=== PATIENT | female | born 1960 | race Caucasian/White ===

== ENCOUNTER 2017-09-17 12:13 | Emergency (ER) | payer MEDICAID ==
[~2017-09-17] VITALS: Ht 165.1 cm; Wt 67.6 kg
[2017-09-17 12:17] VITALS: BP 189/92
[2017-09-17] MEDS ORDERED: DEXAMETHASONE 10 MG/ML VIAL IM ONE (13:10)
[2017-09-17] MEDS ORDERED: MORPHINE SULFATE 2 MG/ML SYR IM ONE (13:10)
[2017-09-17 13:49] VITALS: BP 162/71
== END 2017-09-17 13:50 | disposition home or self-care (01) ==
LOC: MED 12:13
DX: M25.542 Pain in joints of left hand (principal); M25.541 Pain in joints of right hand; G89.29 Other chronic pain; K21.9 Gastro-esophageal reflux disease without esophagitis; Z85.42 Personal history of malignant neoplasm of other parts of uterus; Z88.0 Allergy status to penicillin
CPT/HCPCS: 96372; 99284; J1100; J2270

== ENCOUNTER 2017-09-20 11:59 | Emergency (ER) | payer MEDICAID ==
[~2017-09-20] VITALS: Ht 167.6 cm; Wt 66.7 kg
--- NOTE | 2017-09-20 12:13 | NUR ---
PT AMBULATED TO ER BED 11
[2017-09-20 12:18] VITALS: BP 123/64
--- NOTE | 2017-09-20 12:20 | NUR ---
PATIENT PRESENTS TO ED WITH COMPLAINTS OF RIGHT SHOULDER PAIN. PATIENT REPORTS SHE HAS ARTHRITIS AND PAIN IS INCREASING. DENIES N/V/D; SKIN IS PINK/WARM/DRY; AAOX4 WITH EVEN AND STEADY GAIT; LUNGS CLEAR BL; HR EVEN AND REGULAR; PT DENIES ANY FEVER, CP, SOB, OR COUGH AT THIS TIME; PATIENT STATES PAIN OF 10/10 AT THIS TIME; VSS; PATIENT POSITIONED FOR COMFORT; HOB ELEVATED; BEDRAILS UP X1; BED DOWN. ER MD MADE AWARE OF PT STATUS.
[2017-09-20] MEDS ORDERED: MORPHINE SULFATE 2 MG/ML SYR IM ONE (12:45)
[2017-09-20] MEDS ORDERED: DEXAMETHASONE 10 MG/ML VIAL IM ONE (12:45)
[2017-09-20 13:15] VITALS: BP 123/64
--- NOTE | 2017-09-20 13:15 | NUR ---
Patient discharged with v/s stable. Written and verbal after care instructions given and explained. Patient verbalized understanding. Ambulatory with steady gait. All questions addressed prior to discharge. Advised to follow up with PMD.
== END 2017-09-20 13:15 | disposition home or self-care (01) ==
LOC: MED 11:59
DX: M19.011 Primary osteoarthritis, right shoulder (principal); I12.0 Hypertensive chronic kidney disease with stage 5 chronic kidney disease or end stage renal disease; N18.6 End stage renal disease; Z99.2 Dependence on renal dialysis; Z85.54 Personal history of malignant neoplasm of ureter; Z88.0 Allergy status to penicillin
CPT/HCPCS: 73030; 99284; J1100; J2270; Q0092

== ENCOUNTER 2017-09-24 08:00 | Emergency (ER) | payer MEDICAID ==
[~2017-09-24] VITALS: Ht 167.6 cm; Wt 67.1 kg
--- NOTE | 2017-09-24 08:23 | NUR ---
PT AMBULATES WITH WALKER TO BED 11
--- NOTE | 2017-09-24 08:25 | NUR ---
PT MOVED BY WHEELCHAIR TO BED 3
--- NOTE | 2017-09-24 08:26 | NUR ---
57Y/F BIB C/O EVA ARM AND LEG PAIN X3 WKS. PT STATES SHE GETS DIALYSIS TUES,THURS,SAT. PT DENIES N/V/D; SKIN IS PINK/WARM/DRY; AAOX4 WITH EVEN AND STEADY GAIT; PATIENT STATES PAIN OF 9/10 AT THIS TIME; VSS; PATIENT POSITIONED FOR COMFORT; HOB ELEVATED; BEDRAILS UP X1; BED DOWN. ER MD MADE AWARE OF PT STATUS.
[2017-09-24 08:35] VITALS: BP 121/64
[2017-09-24] MEDS ORDERED: HYDROcodone/APAP 10/325 MG 1 TAB TAB PO STA (09:44)
--- NOTE | 2017-09-24 10:05 | NUR ---
LAB AT BEDSIDE
--- NOTE | 2017-09-24 10:13 | NUR ---
XRAY AT BEDSIDE
[2017-09-24 10:20] LABS: BASOPHILS # (AUTO) 0.1 K/uL (0.00-0.22); BASOPHILS % (AUTO) 1.2 % (0.0-2.0); EOSINOPHILS # (AUTO) 0.2 K/uL (0-0.4); EOSINOPHILS % (AUTO) 4.4 % (0.0-4.0); HEMATOCRIT 30.8 % (36-48); HEMOGLOBIN 9.9 g/dL (12.0-16.0); LYMPHOCYTES # (AUTO) 0.9 K/uL (2.5-16.5); LYMPHOCYTES % (AUTO) 20.8 % (20.5-51.1); MEAN CORPUSCULAR HEMOGLOBIN 29 pg (27-31); MEAN CORPUSCULAR HGB CONC 32 g/dL (33-37); MEAN CORPUSCULAR VOLUME 89.4 fL (80-94); MONOCYTES # (AUTO) 0.6 K/uL (0.8-1.0); MONOCYTES % (AUTO) 13.3 % (1.7-9.3); NEUTROPHILS # (AUTO) 2.6 K/uL (1.8-7.7); NEUTROPHILS % (AUTO) 60.3 % (42.2-75.2); PLATELET COUNT (AUTO) 139 K/uL (140-450); RED BLOOD CELL COUNT(AUTO) 3.44 MIL/uL (4.20-5.40); RED CELL DISTRIBUTION WIDTH 17.2 % (11.6-13.7); WHITE BLOOD COUNT (AUTO) 4.4 K/uL (4.8-10.8)
[2017-09-24 10:39] LABS: ANION GAP 9.8 (8-16); CARBON DIOXIDE 31.4 mmol/L (21-32); POTASSIUM 4.2 mmol/L (3.5-5.1)
[2017-09-24 10:40] LABS: PROTHROMBIN TIME 10.9 secs (10.8-13.4)
[2017-09-24 10:41] LABS: CREATININE 5.4 mg/dL (0.6-1.3)
[2017-09-24 10:42] LABS: ALBUMIN 2.4 g/dL (3.4-5.0); TOTAL BILIRUBIN 0.5 mg/dL (0.0-1.0)
[2017-09-24 13:16] VITALS: BP 119/62
== END 2017-09-24 13:16 | disposition home or self-care (01) ==
LOC: MED 08:00
DX: M06.9 Rheumatoid arthritis, unspecified (principal); G89.29 Other chronic pain; I12.0 Hypertensive chronic kidney disease with stage 5 chronic kidney disease or end stage renal disease; N18.6 End stage renal disease; Z99.2 Dependence on renal dialysis; Z85.42 Personal history of malignant neoplasm of other parts of uterus; Z88.0 Allergy status to penicillin
CPT/HCPCS: 36415; 71045; 80053; 85025; 85610; 85730; 99285; Q0092

== ENCOUNTER 2017-09-30 04:05 | Emergency (ER) | payer MEDICAID ==
[~2017-09-30] VITALS: Ht 167.6 cm; Wt 67.1 kg
[2017-09-30 04:09] VITALS: BP 140/72
--- NOTE | 2017-09-30 04:16 | NUR ---
Patient transferred to bed 7 via wheelchair by tech. RN evaluating patient at bedside.
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
--- NOTE | 2017-09-30 04:26 | NUR ---
Dr. Smith evaluating patient at bedside.
[2017-09-30] MEDS ORDERED: MORPHINE SULFATE 4 MG/ML SYR IM ONE (04:30)
[2017-09-30 05:40] VITALS: BP 140/72
--- NOTE | 2017-09-30 05:40 | NUR ---
Patient discharged with v/s stable. Written and verbal after care instructions given and explained. Patient verbalized understanding. Wheel Chair Assisted with to car. All questions addressed prior to discharge. Advised to follow up with PMD. family at bedside upon dc.
== END 2017-09-30 05:40 | disposition home or self-care (01) ==
LOC: MED 04:05
DX: M19.012 Primary osteoarthritis, left shoulder (principal); M19.011 Primary osteoarthritis, right shoulder; I12.0 Hypertensive chronic kidney disease with stage 5 chronic kidney disease or end stage renal disease; N18.6 End stage renal disease; Z99.2 Dependence on renal dialysis; Z85.42 Personal history of malignant neoplasm of other parts of uterus; Z88.0 Allergy status to penicillin
CPT/HCPCS: 96372; 99283; J2270

== ENCOUNTER 2017-10-14 23:38 | Emergency (ER) | payer MEDICAID ==
[~2017-10-14] VITALS: Ht 167.6 cm; Wt 64.0 kg
[2017-10-14 23:46] VITALS: BP 130/81
--- NOTE | 2017-10-14 23:49 | NUR ---
57/F CAME IN W C/O EVA SHOULDER PAIN AND LEFT ARM PAIN AND EDEMA X 1 DAY. DENIES TRAUMA.LIMITED ROM TO EVA SHOUDLERS, +PMSC TO BUE. PMH: ARTHRITIS, UTERINE CA, DIALYSIS
--- NOTE | 2017-10-14 23:49 | NUR ---
TO BED # 11 VIA W/C, REPORT GIVEN TO MARTI PINEDO
[2017-10-15] MEDS ORDERED: HYDROcodone/APAP 10/325 MG 1 TAB TAB PO STA (00:41)
[2017-10-15] MEDS ORDERED: DEXAMETHASONE 10 MG/ML VIAL IM ONE (00:45)
--- NOTE | 2017-10-15 02:55 | NUR ---
Patient discharged with v/s stable. Written and verbal after care instructions given and explained. Patient alert, oriented and verbalized understanding of instructions. Wheel Chair Assisted with to car. All questions addressed prior to discharge. ID band removed. Patient advised to follow up with PMD. Rx of NORCO given. Patient educated on indication of medication including possible reaction and side effects. Opportunity to ask questions provided and answered.
[2017-10-15 03:02] VITALS: BP 132/76
== END 2017-10-15 02:55 | disposition home or self-care (01) ==
LOC: MED 23:38
DX: M19.042 Primary osteoarthritis, left hand (principal); M19.041 Primary osteoarthritis, right hand; I12.0 Hypertensive chronic kidney disease with stage 5 chronic kidney disease or end stage renal disease; Z99.2 Dependence on renal dialysis; Z85.42 Personal history of malignant neoplasm of other parts of uterus; Z88.0 Allergy status to penicillin
CPT/HCPCS: 96372; 99283; J1100

== ENCOUNTER 2017-10-17 21:38 | Emergency (ER) | payer MEDICAID ==
[~2017-10-17] VITALS: Ht 167.6 cm; Wt 64.9 kg
[2017-10-17 21:45] VITALS: BP 123/75
--- NOTE | 2017-10-17 22:31 | NUR ---
PT TAKEN BY WHEELCHAIR TO ER BED 08
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
[2017-10-18] MEDS ORDERED: HYDROcodone/APAP 5/325 MG 1 TAB TAB PO ONE (00:15)
[2017-10-18 00:44] VITALS: BP 173/88
--- NOTE | 2017-10-18 00:44 | NUR ---
Patient discharged with v/s stable. Written and verbal after care instructions given and explained. Patient alert, oriented and verbalized understanding of instructions. Wheelchair-assisted. All questions addressed prior to discharge. ID band removed. Patient advised to follow up with PMD. Rx of TYLENOL given. Patient educated on indication of medication including possible reaction and side effects. Opportunity to ask questions provided and answered.
== END 2017-10-18 00:44 | disposition home or self-care (01) ==
LOC: MED 21:38
DX: G89.29 Other chronic pain (principal); M79.1 Myalgia; R11.2 Nausea with vomiting, unspecified; I10 Essential (primary) hypertension; Z88.0 Allergy status to penicillin; Z85.42 Personal history of malignant neoplasm of other parts of uterus; Z90.710 Acquired absence of both cervix and uterus
CPT/HCPCS: 99283

== ENCOUNTER 2017-10-22 08:34 | Emergency (ER) | payer MEDICAID ==
[~2017-10-22] VITALS: Ht 170.2 cm; Wt 64.9 kg
[2017-10-22 08:43] VITALS: BP 112/63
--- NOTE | 2017-10-22 08:44 | NUR ---
PT AMBULATES TO BED 9
--- NOTE | 2017-10-22 08:47 | NUR ---
PT PRESENTS TO ED WITH COMPLAINTS OF JOINT PAIN. PATIENT STATES THIS IS A CHRONIC PROBLEM BUT WORSENING IN THE LAST COUPLE OF DAYS. 12/27 ARTHRITIS PAIN, GENERALIZED. PATIENT ASSITED TO BED VIA WHEELCHAIR. PATIENT PREFERS TO STAY IN WHEELCHAIR THAN TO TRANSFER TO BED DUE TO PAIN. DENIES N/V/D; SKIN IS PINK/WARM/DRY; AAOX4; LUNGS CLEAR BL; HR EVEN AND REGULAR; PT DENIES ANY FEVER, CP, SOB, OR COUGH AT THIS TIME; VSS; ER MD MADE AWARE OF PT STATUS.
--- NOTE | 2017-10-22 08:48 | NUR ---
DR MOREL EVALUATING AT BEDSIDE
[2017-10-22] MEDS ORDERED: MORPHINE SULFATE 4 MG/ML SYR IM ONE (08:55)
[2017-10-22] MEDS ORDERED: DEXAMETHASONE 10 MG/ML VIAL IM ONE (08:55)
[2017-10-22 11:19] VITALS: BP 110/60
== END 2017-10-22 11:18 | disposition home or self-care (01) ==
LOC: MED 08:34
DX: M06.842 Other specified rheumatoid arthritis, left hand (principal); M06.841 Other specified rheumatoid arthritis, right hand; M06.872 Other specified rheumatoid arthritis, left ankle and foot; M06.871 Other specified rheumatoid arthritis, right ankle and foot; Z99.2 Dependence on renal dialysis; Z90.49 Acquired absence of other specified parts of digestive tract; Z88.0 Allergy status to penicillin; Z85.42 Personal history of malignant neoplasm of other parts of uterus
CPT/HCPCS: 96372; 99284; J1100; J2270

== ENCOUNTER 2017-10-27 10:30 | Emergency (ER) | payer MEDICAID ==
[~2017-10-27] VITALS: Ht 170.2 cm; Wt 64.9 kg
[2017-10-27 10:35] VITALS: BP 99/66
--- NOTE | 2017-10-27 10:41 | NUR ---
TAKEN VIA WALKER TO BED 12
--- NOTE | 2017-10-27 10:46 | NUR ---
57YO F BIB FOR L ARM PAIN R LEG PAIN. PT STATES CHRONIC PAIN DUE TO ARTHRITIS. AAOX4, LS CLEAR THROUGHOUT. ABD FIRM ROUND. PT STATES CONSTIPATION X1WK. BILAT HAND SWELLING AND FEET SWELLING WITH DISCOLORATION. FISTULA ON L UPPER ARM, BRUT/THRILL PRESENT. CHARANJIT CATH ON LEFT UPPER CHEST. WILL CONTINUE TO MONITOR. ER MADE AWARE.
--- NOTE | 2017-10-27 10:50 | NUR ---
Patient being evaluated by physician at bedside.
[2017-10-27] MEDS ORDERED: LACTULOSE 20 GM/30 ML UDC PO ONE (11:05)
[2017-10-27] MEDS ORDERED: MINERAL OIL 135 ML ENEM RC ONE (11:05)
[2017-10-27] MEDS ORDERED: DEXAMETHASONE 10 MG/ML VIAL IM ONE (11:05)
[2017-10-27] MEDS ORDERED: MORPHINE SULFATE 2 MG/ML SYR IM ONE (11:05)
[2017-10-27] MEDS ORDERED: ONDANSETRON 4 MG ODT PO ONE (11:05)
--- NOTE | 2017-10-27 11:11 | NUR ---
XRAY AT BEDSIDE
--- NOTE | 2017-10-27 11:50 | NUR ---
Aletha johnson in [facility] - 10/27/17 at 1307 by MEDS Patient being evaluated by physician at bedside.
[2017-10-27 12:40] VITALS: BP 100/64
--- NOTE | 2017-10-27 12:40 | NUR ---
Patient discharged with v/s stable. Written and verbal after care instructions given and explained. Patient alert, oriented and verbalized understanding of instructions. Ambulatory with steady gait. All questions addressed prior to discharge. ID band removed. Patient advised to follow up with PMD. Rx of COLACE, LACTULOSE given. Patient educated on indication of medication including possible reaction and side effects. Opportunity to ask questions provided and answered.
== END 2017-10-27 12:40 | disposition home or self-care (01) ==
LOC: MED 10:30
DX: M35.3 Polymyalgia rheumatica (principal); K59.09 Other constipation; I12.0 Hypertensive chronic kidney disease with stage 5 chronic kidney disease or end stage renal disease; N18.6 End stage renal disease; Z88.0 Allergy status to penicillin; Z99.2 Dependence on renal dialysis; Z85.42 Personal history of malignant neoplasm of other parts of uterus
CPT/HCPCS: 74018; 96372; 99284; J1100; J2270; S0119

== ENCOUNTER 2017-11-02 23:59 | Emergency (ER) | payer MEDICAID ==
[~2017-11-02] VITALS: Ht 170.2 cm; Wt 64.9 kg
[2017-11-03 00:08] VITALS: BP 147/81
--- NOTE | 2017-11-03 00:16 | NUR ---
PT TAKEN TO BED 7
--- NOTE | 2017-11-03 00:20 | NUR ---
Dr. Smith evaluating patient at bedside.
[2017-11-03] MEDS ORDERED: MORPHINE SULFATE 4 MG/ML SYR IM ONE (00:25)
--- NOTE | 2017-11-03 00:30 | NUR ---
Patient bib family with complaints of worsening upper extremity pain today. Patient denies any recent trauma or injury. Denies any fall. Pt c/o bilateral upper arm pain and right leg pain. AOX4, clear speech. NAD noted. Pt resting comfortably in [facility].
[2017-11-03 01:51] VITALS: BP 147/81
--- NOTE | 2017-11-03 01:51 | NUR ---
Patient discharged with v/s stable. Written and verbal after care instructions given and explained. Patient alert, oriented and verbalized understanding of instructions. Patient wheel chair assisted to car accompanied by daughter. Patient isntructed not to drive home. All questions addressed prior to discharge. ID band removed. Patient advised to follow up with PMD. Rx of Ambien given. Patient educated on indication of medication including possible reaction and side effects. Opportunity to ask questions provided and answered.
== END 2017-11-03 01:51 | disposition home or self-care (01) ==
LOC: MED 23:59
DX: M19.90 Unspecified osteoarthritis, unspecified site (principal); I12.0 Hypertensive chronic kidney disease with stage 5 chronic kidney disease or end stage renal disease; N18.6 End stage renal disease; Z88.0 Allergy status to penicillin; Z85.42 Personal history of malignant neoplasm of other parts of uterus; Z99.2 Dependence on renal dialysis
CPT/HCPCS: 96372; 99283; J2270

== ENCOUNTER 2017-11-05 13:41 | Emergency (ER) | payer MEDICAID ==
[~2017-11-05] VITALS: Ht 170.2 cm; Wt 64.9 kg
[2017-11-05 14:00] VITALS: BP 114/64
--- NOTE | 2017-11-05 14:06 | NUR ---
PT TAKEN BY WHEELCHAIR TO BED 2
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
[2017-11-05] MEDS ORDERED: DEXAMETHASONE 10 MG/ML VIAL IM ONE (15:25)
[2017-11-05] MEDS ORDERED: MORPHINE SULFATE 2 MG/ML SYR IM ONE (15:25)
--- NOTE | 2017-11-05 15:47 | NUR ---
PATIENT MEDICATED FOR BODY PAIN.
[2017-11-05 16:40] VITALS: BP 118/65
--- NOTE | 2017-11-05 16:40 | NUR ---
Patient discharged with v/s stable. Written and verbal after care instructions given and explained. Patient alert, oriented and verbalized understanding of instructions. Wheel Chair Assisted with by . All questions addressed prior to discharge. ID band removed. Patient advised to follow up with PMD. Rx of visteral, tramadol given. Patient educated on indication of medication including possible reaction and side effects. Opportunity to ask questions provided and answered.
== END 2017-11-05 16:40 | disposition home or self-care (01) ==
LOC: MED 13:41
DX: M35.3 Polymyalgia rheumatica (principal); N28.9 Disorder of kidney and ureter, unspecified; Z85.42 Personal history of malignant neoplasm of other parts of uterus; I10 Essential (primary) hypertension; Z88.0 Allergy status to penicillin
CPT/HCPCS: 96372; 99284; J1100; J2270

== ENCOUNTER 2017-12-03 08:24 | Emergency (ER) | payer MEDICAID ==
[~2017-12-03] VITALS: Ht 167.6 cm; Wt 64.4 kg
[2017-12-03 08:53] VITALS: BP 100/52
[2017-12-03 11:03] VITALS: BP 103/54
== END 2017-12-03 11:03 | disposition home or self-care (01) ==
LOC: MED 08:24
DX: K59.00 Constipation, unspecified (principal); Z85.42 Personal history of malignant neoplasm of other parts of uterus; Z88.0 Allergy status to penicillin; Z99.2 Dependence on renal dialysis; I10 Essential (primary) hypertension; I12.0 Hypertensive chronic kidney disease with stage 5 chronic kidney disease or end stage renal disease; N18.6 End stage renal disease
CPT/HCPCS: 99283

== ENCOUNTER 2017-12-17 08:28 | Emergency (ER) | payer MEDICAID ==
[~2017-12-17] VITALS: Ht 167.6 cm; Wt 64.0 kg
[2017-12-17 08:35] VITALS: BP 110/78
[2017-12-17] MEDS ORDERED: MORPHINE SULFATE 2 MG/ML SYR IM ONE (08:50)
[2017-12-17] MEDS ORDERED: methylPREDNISolone SS 125 MG in WATER STERILE 2 ML IM ONE (08:50)
[2017-12-17 09:24] VITALS: BP 113/77
== END 2017-12-17 09:24 | disposition home or self-care (01) ==
LOC: MED 08:28
DX: M35.3 Polymyalgia rheumatica (principal); Z85.42 Personal history of malignant neoplasm of other parts of uterus; Z88.0 Allergy status to penicillin
CPT/HCPCS: 96372; 99284; J2270; J2930

== ENCOUNTER 2018-01-13 13:54 | Emergency (ER) | payer MEDICAID ==
[~2018-01-13] VITALS: Ht 167.6 cm; Wt 62.9 kg
[2018-01-13 14:00] VITALS: BP 109/58
--- NOTE | 2018-01-13 14:12 | NUR ---
PATIENT PRESENTS TO ED WITH THE CHIEF C/O WHOLE BODY PAIN . PT STATES PT WAS IN DIALYSIS AND PAIN STARTED 27 MINS BEFORE DIALYSIS FINISH. SHE USUALLY HAVE DIALYSIS FOR 3HRS 45MINS. PT HAS NAUSEA AT THIS TIME. DENIES V/D; SKIN IS PINK/WARM/DRY; AAOX4 WITH EVEN AND STEADY GAIT; LUNGS CLEAR BL; HR EVEN AND REGULAR; PT DENIES ANY FEVER,SOB, OR COUGH AT THIS TIME; PATIENT STATES PAIN AT UPPER LEFT ABD OF 10/10 AT THIS TIME; VSS; PATIENT POSITIONED FOR COMFORT; HOB ELEVATED; BEDRAILS UP X2; BED DOWN. ER MD MADE AWARE OF PT STATUS.
[2018-01-13] MEDS ORDERED: ACETAMINOPHEN EXTRA STRENGTH 500 MG TAB PO ONE (15:15)
--- NOTE | 2018-01-13 15:19 | NUR ---
DOCTOR AWARE ABOUT PT C/O BODY PAIN.
--- NOTE | 2018-01-13 15:34 | NUR ---
ADMINISTERED MEDICATION ORDER TOLERATING WELL.
[2018-01-13 15:36] LABS: HEMOGLOBIN 12.4 g/dL (12.0-16.0); LYMPHOCYTES # (AUTO) 0.8 K/uL (2.5-16.5); LYMPHOCYTES % (AUTO) 16.6 % (20.5-51.1); NEUTROPHILS # (AUTO) 3.2 K/uL (1.8-7.7); WHITE BLOOD COUNT (AUTO) 4.9 K/uL (4.8-10.8)
[2018-01-13 15:42] LABS: BASOPHILS % (AUTO) 0.7 % (0.0-2.0); EOSINOPHILS # (AUTO) 0.2 K/uL (0-0.4); EOSINOPHILS % (AUTO) 3.3 % (0.0-4.0); HEMATOCRIT 38.5 % (36-48); MEAN CORPUSCULAR HEMOGLOBIN 30 pg (27-31); MEAN CORPUSCULAR HGB CONC 32 g/dL (33-37); MEAN CORPUSCULAR VOLUME 93.3 fL (80-94); MONOCYTES # (AUTO) 0.7 K/uL (0.8-1.0); MONOCYTES % (AUTO) 14.6 % (1.7-9.3); NEUTROPHILS % (AUTO) 64.8 % (42.2-75.2); PLATELET COUNT (AUTO) 69 K/uL (140-450); RED BLOOD CELL COUNT(AUTO) 4.13 MIL/uL (4.20-5.40); RED CELL DISTRIBUTION WIDTH 16.9 % (11.6-13.7)
[2018-01-13] MEDS ORDERED: KETOROLAC 30 MG/ML VIAL IM ONE (15:55)
[2018-01-13] MEDS ORDERED: MORPHINE SULFATE 4 MG/ML SYR IM ONE (15:55)
[2018-01-13 16:03] LABS: ALBUMIN 2.6 g/dL (3.4-5.0); ANION GAP 7.7 (8-16); CARBON DIOXIDE 35.3 mmol/L (21-32); CREATININE 3.7 mg/dL (0.6-1.3); TOTAL BILIRUBIN 0.5 mg/dL (0.0-1.0)
--- NOTE | 2018-01-13 17:27 | NUR ---
Patient discharged with v/s stable. Written and verbal after care instructions given and explained. Patient and Pt.'s verbalized understanding. Wheel Chair Assisted with to car. All questions addressed prior to discharge. Advised to follow up with PMD.
[2018-01-13 17:28] VITALS: BP 132/75
== END 2018-01-13 17:27 | disposition home or self-care (01) ==
LOC: MED 13:54
DX: M79.10 Myalgia, unspecified site (principal); I10 Essential (primary) hypertension; Z85.42 Personal history of malignant neoplasm of other parts of uterus; Z88.0 Allergy status to penicillin
CPT/HCPCS: 36415; 80053; 85025; 96372; 99284; J1885; J2270

== ENCOUNTER 2018-03-13 11:59 | Emergency (ER) | payer MEDICAID ==
[~2018-03-13] VITALS: Ht 167.6 cm; Wt 56.7 kg
[2018-03-13 12:00] VITALS: BP 134/81
--- NOTE | 2018-03-13 12:48 | NUR ---
Aletha johnson in ED - 03/13/18 at 1249 by KUSH PT AMBULATED TO ER BED 11
--- NOTE | 2018-03-13 12:49 | NUR ---
PT IN WHEELCHAIR TO ER BED 11
--- NOTE | 2018-03-13 12:56 | NUR ---
57 YO F BROUGHT IN BY FAMILY W/ C/O HACKING COUGH, NASAL/CHEST CONGESTION, FATIGUE, THROAT PAIN X 2 DAYS. PT ALSO REPORTS C/O JOINT PAIN & ARTHRITIS EXACERBATION. PT W/ RR EVEN AND UNLABORED, LUNGS BL CLEAR. AAOX4, GCS 15. CMS INTACT. DENIES N/V/D/FEVER. ABD SOFT, NON-TENDER. BOWEL SOUNDS ACTIVE X 4. PT W/ AV SHUNT LEFT ARM. SKIN WARM, DRY TO THE TOUCH. COLOR APPROPRIATE FOR ETHNICITY. ER MD NOTIFIED OF PT STATUS. PT NEEDS MET, SAFETY PRECAUTIONS IN PLACE. WILL CONTINUE TO MONITOR.
[2018-03-13] MEDS ORDERED: DEXAMETHASONE 10 MG/ML VIAL IM ONE (13:45)
[2018-03-13] MEDS ORDERED: MORPHINE SULFATE 2 MG/ML SYR IM ONE ×2 (13:45→14:40)
[2018-03-13] MEDS ORDERED: ALBUTEROL SULFATE/IPRATROPIU 3 ML SOL IH ONE (13:55)
[2018-03-13] MEDS ORDERED: MORPHINE SULFATE 4 MG/ML SYR ONE ×2 (14:21→14:57)
--- NOTE | 2018-03-13 14:30 | NUR ---
ADMITTING DX: COLD SYMPTOMS HX: DENIES SOB COPD ASTHMA LOC AWAKE AND ALERT RESPONSIVE TO PAPER NOVELTY MAKER VERBAL COMMANDS EDUCATION PROVIDED TO PATIENT WITH ACKNOWLEDGEMENT ON HHN THERAPY AND RESPIRATORY DRUG HHN THERAPY GIVEN ORDERED ENCOURAGED PATIENT FOR INTERMITTENT DEEP BREATHING DURING THERAPY TOLERATED WELL WITHOUT INCIDENT
[2018-03-13 15:20] VITALS: BP 130/88
--- NOTE | 2018-03-13 15:20 | NUR ---
Patient discharged with v/s stable. Written and verbal after care instructions given and explained. Patient alert, oriented and verbalized understanding of instructions. Ambulatory with steady gait. All questions addressed prior to discharge. ID band removed. Patient advised to follow up with PMD. Rx of TRAMADOL 50MG AND PREDNISONE 20MG given. Patient educated on indication of medication including possible reaction and side effects. Opportunity to ask questions provided and answered.
== END 2018-03-13 15:20 | disposition home or self-care (01) ==
LOC: MED 11:59
DX: M79.7 Fibromyalgia (principal); R05 Cough; I12.0 Hypertensive chronic kidney disease with stage 5 chronic kidney disease or end stage renal disease; N18.6 End stage renal disease; M25.50 Pain in unspecified joint; Z88.0 Allergy status to penicillin
CPT/HCPCS: 71045; 94640; 96372; 99283; J1100; J2270; J7620; Q0092

== ENCOUNTER 2018-04-29 20:30 | Emergency (ER) | payer MEDICAID ==
[~2018-04-29] VITALS: Ht 167.6 cm; Wt 64.9 kg
[2018-04-29 20:41] VITALS: BP 150/89
--- NOTE | 2018-04-29 20:45 | NUR ---
PT TAKEN TO BED 9
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
--- NOTE | 2018-04-29 22:28 | NUR ---
Dr. Da Silva evaluating patient at bedside.
[2018-04-29] MEDS ORDERED: KETOROLAC 60 MG/2 ML VIAL IM ONE (22:35)
--- NOTE | 2018-04-29 23:27 | NUR ---
ANIMAL BITE REPORTING FORM FAXED TO [phone] BY LETTY PINEDO.
[2018-04-29 23:30] VITALS: BP 149/88
== END 2018-04-29 23:16 | disposition home or self-care (01) ==
LOC: MED 20:30
DX: S01.452A Open bite of left cheek and temporomandibular area, initial encounter (principal); I12.0 Hypertensive chronic kidney disease with stage 5 chronic kidney disease or end stage renal disease; N18.6 End stage renal disease; Z85.42 Personal history of malignant neoplasm of other parts of uterus; Z90.49 Acquired absence of other specified parts of digestive tract; Z90.710 Acquired absence of both cervix and uterus; Z88.0 Allergy status to penicillin; W54.0XXA Bitten by dog, initial encounter; Y93.89 Activity, other specified; Y92.89 Other specified places as the place of occurrence of the external cause; Y99.8 Other external cause status
CPT/HCPCS: 90471; 90715; 96372; 99283; J1885

== ENCOUNTER 2018-05-18 13:24 | Emergency (ER) | payer MEDICAID ==
[~2018-05-18] VITALS: Ht 167.6 cm; Wt 65.8 kg
[2018-05-18 13:33] VITALS: BP 143/80
--- NOTE | 2018-05-18 13:42 | NUR ---
PATIENT AMBULATED TO BED 11.
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
[2018-05-18] MEDS ORDERED: KETOROLAC 60 MG/2 ML VIAL IM ONE (14:15)
[2018-05-18] MEDS ORDERED: MORPHINE SULFATE 4 MG/ML SYR IM ONE (14:45)
[2018-05-18 15:44] VITALS: BP 139/79
--- NOTE | 2018-05-18 15:44 | NUR ---
Patient discharged with v/s stable. Written and verbal after care instructions given and explained. Patient alert, oriented and verbalized understanding of instructions. Wheel Chair Assisted by caregiver. All questions addressed prior to discharge. ID band removed. Patient advised to follow up with PMD. Rx of kEFLEX, BACTRI,NORCO given. Patient educated on indication of medication including possible reaction and side effects. Opportunity to ask questions provided and answered.
== END 2018-05-18 15:44 | disposition home or self-care (01) ==
LOC: MED 13:24
DX: L89.300 Pressure ulcer of unspecified buttock, unstageable (principal); I12.0 Hypertensive chronic kidney disease with stage 5 chronic kidney disease or end stage renal disease; N18.6 End stage renal disease; Z88.0 Allergy status to penicillin; Z85.42 Personal history of malignant neoplasm of other parts of uterus; Z90.710 Acquired absence of both cervix and uterus; Z90.49 Acquired absence of other specified parts of digestive tract
CPT/HCPCS: 96372; 99283; J1885; J2270

== ENCOUNTER 2018-06-02 15:15 | Emergency (ER) | payer MEDICAID ==
[~2018-06-02] VITALS: Ht 167.6 cm; Wt 64.9 kg
[2018-06-02 15:36] VITALS: BP 110/76
--- NOTE | 2018-06-02 15:41 | NUR ---
PATIENT BIB W/C TO ER CHAIR 4.
--- NOTE | 2018-06-02 15:50 | NUR ---
PT IS A 58 Y/O FEMALE BIB W/C WHO PRESENTS TO THE ED C/O R ARM. PT STATES THAT SHE FELL ON HER R ARM. PT REPORTS 10/10 ACHING R UPPER ARM PAIN THAT DOES NOT RADIATE, PAIN ON MOVEMENT. NO OBVIOUS TRAUMA/DEFORMITY. PT ALSO REPORTS PRESSURE ULCER INSIDE R BUTTOCK. PT DENIES CP, SOB, N/V/D. PT AWAKE AND ALERT, RR EVEN/UNLABORED. PT REPOSITIONED FOR COMFORT, BED IN LOWEST POSITION. ER MD DR. FORTUNE NOTIFIED. WILL CONTINUE TO MONITOR. BIB WITH RIGHT ARM PAIN S/P FALL ON THE FLOOR, - LOC, - ROM, <3 CAP REFILL,
[2018-06-02] MEDS ORDERED: MORPHINE SULFATE 4 MG/ML SYR IM ONE (16:10)
--- NOTE | 2018-06-02 16:45 | NUR ---
XRAY AT BEDSIDE FOR INTERVENTION.
[2018-06-02 17:39] VITALS: BP 139/79
--- NOTE | 2018-06-02 17:39 | NUR ---
Patient discharged with v/s stable. Written and verbal after care instructions given and explained. Patient verbalized understanding. Wheel Chair Assisted with to car. All questions addressed prior to discharge. Advised to follow up with PMD.
== END 2018-06-02 17:39 | disposition home or self-care (01) ==
LOC: MED 15:15
DX: M25.511 Pain in right shoulder (principal); L89.309 Pressure ulcer of unspecified buttock, unspecified stage; I12.0 Hypertensive chronic kidney disease with stage 5 chronic kidney disease or end stage renal disease; N18.6 End stage renal disease; Z85.42 Personal history of malignant neoplasm of other parts of uterus; Z88.0 Allergy status to penicillin; W07.XXXA Fall from chair, initial encounter; Y93.89 Activity, other specified; Y92.89 Other specified places as the place of occurrence of the external cause; Y99.8 Other external cause status
CPT/HCPCS: 73030; 96372; 99283; J2270; Q0092

== ENCOUNTER 2018-06-04 12:30 | Emergency (ER) | payer MEDICAID ==
[~2018-06-04] VITALS: Ht 167.6 cm; Wt 64.9 kg
--- NOTE | 2018-06-04 14:53 | NUR ---
PT AMBULATED TO ER BED 09
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
--- NOTE | 2018-06-04 15:14 | NUR ---
Patient being evaluated by physician at bedside.
[2018-06-04] MEDS ORDERED: diphenhydrAMINE 50 MG/ML VIAL IM ONE (15:15)
[2018-06-04] MEDS ORDERED: MORPHINE SULFATE 4 MG/ML SYR IM ONE (15:15)
[2018-06-04] MEDS ORDERED: KETOROLAC 30 MG/ML VIAL IM ONE (15:15)
[2018-06-04 16:30] VITALS: BP 144/84
--- NOTE | 2018-06-04 16:30 | NUR ---
Patient discharged with v/s stable. Written and verbal after care instructions given and explained. Patient verbalized understanding. Wheel Chair Assisted with . All questions addressed prior to discharge. Advised to follow up with PMD.
--- NOTE | 2018-06-04 16:50 | NUR ---
Note elizabeth in EDM - 06/04/18 at 1651 by [facility] Patient discharged with v/s stable. Written and verbal after care instructions given and explained. Patient verbalized understanding. Wheel Chair Assisted with . All questions addressed prior to discharge. Advised to follow up with PMD.
== END 2018-06-04 16:30 | disposition home or self-care (01) ==
LOC: MED 12:30
DX: L89.309 Pressure ulcer of unspecified buttock, unspecified stage (principal); M06.9 Rheumatoid arthritis, unspecified; I10 Essential (primary) hypertension; Z88.0 Allergy status to penicillin; Z99.2 Dependence on renal dialysis; Z90.49 Acquired absence of other specified parts of digestive tract; Z90.710 Acquired absence of both cervix and uterus
CPT/HCPCS: 96372; 99283; J1200; J1885; J2270

== ENCOUNTER 2018-06-06 12:15 | Emergency (ER) | payer MEDICAID ==
[~2018-06-06] VITALS: Ht 167.6 cm; Wt 64.0 kg
[2018-06-06 12:20] VITALS: BP 128/75
--- NOTE | 2018-06-06 13:34 | NUR ---
PATIENT ASSISTED TO BED 1 AT THIS TIME.
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
[2018-06-06] MEDS ORDERED: NEOMYCIN/POLYMYXIN/BACITRACIN 0.9 GM/1 PKT TP ONE ×2 (15:16→15:20)
--- NOTE | 2018-06-06 15:19 | NUR ---
Patient being evaluated by physician at bedside.
[2018-06-06] MEDS ORDERED: MORPHINE SULFATE 4 MG/ML SYR IM ONE (15:20)
[2018-06-06] MEDS ORDERED: PROMETHAZINE 25 MG/ML VIAL IM ONE (15:20)
[2018-06-06 16:00] VITALS: BP 125/70
== END 2018-06-06 16:00 | disposition home or self-care (01) ==
LOC: MED 12:15
DX: L02.215 Cutaneous abscess of perineum (principal); I12.0 Hypertensive chronic kidney disease with stage 5 chronic kidney disease or end stage renal disease; N18.6 End stage renal disease; Z85.42 Personal history of malignant neoplasm of other parts of uterus
CPT/HCPCS: 96372; 99283; J2270; J2550

== ENCOUNTER 2019-05-10 20:15 | Inpatient (IN) | payer MEDICAID ==
[~2019-05-10] VITALS: Ht 170.2 cm; Wt 68.0 kg
[2019-05-10 20:15] VITALS: BP 129/59
--- NOTE | 2019-05-10 20:21 | NUR ---
PT ASSISTED TO BED 8 FROM [facility].
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
[2019-05-10] MEDS ORDERED: MORPHINE SULFATE 4 MG/ML SYR IM ONE (20:55)
[2019-05-10] MEDS ORDERED: ONDANSETRON 4 MG ODT PO ONE (20:55)
--- NOTE | 2019-05-10 21:35 | NUR ---
PATIENT REQUESTING TO BE TURNED IN BED, PATIENT UNABLE TO INDEPENDENTLY SELF TURN OR REPOSITION. GENERALIZED WEAKNESS NOTED. PILLOWS PLACED UNDER LEFT SIDE, PATIENT LYING RIGHT LATERAL. SIDERAILS UP x2, BED LOCKED AND IN LOWEST POSITION. PT CONNECTED TO MONITOR. VSS.
--- NOTE | 2019-05-10 21:40 | NUR ---
PT BS @ 60 MD MADE AWARE. PT GIVEN ORANGE JUICE AND FOOD. Addendum: 05/11/19 at 0638 by [email or web address] * PT AAO X4 AND ASYMPTOMATIC. PT ABLE TO TOLERATE FOOD PO WITH NO EPISODES OF N/V. PT GIVEN SANDWICH, JELLO, AND TWO ORANGE JUICES. ERMD MADE AWARE. NO NEW ORDERS AT THIS TIME. SISTER AND MOTHER AT BEDSIDE.
--- NOTE | 2019-05-10 21:41 | NUR ---
XRAY AT BEDSIDE.
--- NOTE | 2019-05-10 21:56 | NUR ---
DR. HARTMAN AT BEDSIDE.
[2019-05-10] MEDS ORDERED: NACL 0.9% 1,000 ML IV ONE (22:07)
--- NOTE | 2019-05-10 22:15 | NUR ---
PT TAKEN TO CT VIA RSHREYAS.
--- NOTE | 2019-05-10 22:48 | NUR ---
LAB AT BEDSIDE.
[2019-05-10 23:09] LABS: BASOPHILS # (AUTO) 0.1 K/uL (0.00-0.22); BASOPHILS % (AUTO) 2.2 % (0.0-2.0); EOSINOPHILS # (AUTO) 0.1 K/uL (0-0.4); EOSINOPHILS % (AUTO) 5.4 % (0.0-4.0); HEMATOCRIT 26.8 % (36-48); HEMOGLOBIN 8.8 g/dL (12.0-16.0); LYMPHOCYTES # (AUTO) 0.3 K/uL (2.5-16.5); LYMPHOCYTES % (AUTO) 12.1 % (20.5-51.1); MEAN CORPUSCULAR HEMOGLOBIN 28 pg (27-31); MEAN CORPUSCULAR HGB CONC 33 g/dL (33-37); MEAN CORPUSCULAR VOLUME 86.2 fL (80-94); MONOCYTES # (AUTO) 0.3 K/uL (0.8-1.0); MONOCYTES % (AUTO) 10.2 % (1.7-9.3); NEUTROPHILS # (AUTO) 1.7 K/uL (1.8-7.7); NEUTROPHILS % (AUTO) 70.1 % (42.2-75.2); PLATELET COUNT (AUTO) 111 K/uL (140-450); RED BLOOD CELL COUNT(AUTO) 3.11 MIL/uL (4.20-5.40); RED CELL DISTRIBUTION WIDTH 19.6 % (11.6-13.7); WHITE BLOOD COUNT (AUTO) 2.5 K/uL (4.8-10.8)
--- NOTE | 2019-05-10 23:24 | NUR ---
XRAY AT BEDSIDE FOR CHEST XRAY.
[2019-05-10 23:32] LABS: PROTHROMBIN TIME 11.3 secs (10.8-13.4)
[2019-05-10 23:34] LABS: ALBUMIN 1.9 g/dL (3.4-5.0); ANION GAP 10.9 (8-16); CARBON DIOXIDE 32.4 mmol/L (21-32); POTASSIUM 4.3 mmol/L (3.5-5.1); TOTAL BILIRUBIN 0.4 mg/dL (0.0-1.0)
[2019-05-10 23:36] LABS: CREATININE 4.7 mg/dL (0.6-1.3)
--- NOTE | 2019-05-11 00:19 | NUR ---
PT RESTING IN BED. PT AAO X4. RESPIRATIONS ARE EVEN AND UNLABORED. PT REPOSITIONED IN BED. MOTHER AT SISTER AT BEDSIDE. PT DENIES PAIN AT THIS TIME.
[2019-05-11] MEDS ORDERED: BISA-188 PO (00:32)
[2019-05-11] MEDS ORDERED: [UNRECOGNIZED DRUG - CODE] PO (00:32)
[2019-05-11] MEDS ORDERED: COL100L GT (00:32)
[2019-05-11] MEDS ORDERED: HYDR-1100 PO (00:32)
[2019-05-11] MEDS ORDERED: ALPR1TAB2 PO (00:32)
[2019-05-11] MEDS ORDERED: AMLO10TA PO (00:32)
[2019-05-11] MEDS ORDERED: TTS3 TD (00:32)
[2019-05-11] MEDS ORDERED: LON10 PO (00:32)
[2019-05-11] MEDS ORDERED: PANT40EC PO (00:32)
[2019-05-11] MEDS ORDERED: HYDR-5092 PO (00:32)
[2019-05-11] MEDS ORDERED: TRA200 PO (00:32)
[2019-05-11] MEDS ORDERED: ONDA4TAB PO (00:32)
[2019-05-11] MEDS ORDERED: TEMA15CA24 PO (00:32)
[2019-05-11] MEDS ORDERED: LEVOFLOXACIN 500 MG/D5W PREMIX 100 ML IV ONE (00:45)
--- NOTE | 2019-05-11 01:06 | NUR ---
DR. HARTMAN AT BEDSIDE.
--- NOTE | 2019-05-11 02:00 | NUR ---
IV ESTABLISHED ON RIGHT UPPER ARM 22G. IV IS PATENT. NO SWELLING OR REDNESS NOTED. PT DENIES PAIN AT IV SITE.
--- NOTE | 2019-05-11 02:25 | NUR ---
LEVAQUIN 500MG @ 100ML/HR IVP STARTED. IV SITE IS PATENT. NO REDNESS, SWELLING OR PAIN NOTED.
--- NOTE | 2019-05-11 02:48 | NUR ---
PT AAO X4. PT DENIES PAIN AT THIS TIME. PT REPOSITIONED IN BED WITH ASSISTANCE FROM RN. PT RESPIRATIONS ARE EVEN AND UNLABORED. PT ON 2L/MIN NC. PT O2SAT @ 97%. PT VSS.
--- NOTE | 2019-05-11 03:06 | NUR ---
PT RESTING IN BED EYES CLOSED. PT RESPONDS TO VERBAL STIMULI. PT AAO X4. PT DENIES PAIN AT THIS TIME. PT REPOSITIONED IN BED WITH ASSISTANCE FROM RN. PT RESPIRATIONS ARE EVEN AND UNLABORED. PT ON 2L/MIN NC. PT O2SAT @ 97%. PT VSS. PT ASSISTED IN CALLING FAMILY MEMBER ON PHONE.
--- NOTE | 2019-05-11 04:30 | NUR ---
PT BS RECHECKED AND @ 56. DR HARTMAN MADE AWARE. GAVE NEW ORDER
[2019-05-11] MEDS ORDERED: DEXTROSE 50% 50 ML SYR IVP ONE ×2 (04:35→04:45)
--- NOTE | 2019-05-11 05:15 | NUR ---
PT AAO X4. PT DENIES PAIN AT THIS TIME. PT REPOSITIONED IN BED WITH ASSISTANCE FROM RN. PT RESPIRATIONS ARE EVEN AND UNLABORED. PT ON 2L/MIN NC. PT O2SAT @ 97%. PT VSS. SKIN IS WARM AND DRY TO TOUCH.
--- NOTE | 2019-05-11 05:15 | NUR ---
PT BS @ 89. DR LOCKWOOD MADE AWARE. NO NEW ORDERS AT THIS TIME.
--- NOTE | 2019-05-11 05:55 | NUR ---
Patient will be admitted to care of . Admited to [facility]. Will go to room 117. Belongings list completed. Report to MARICEL PINEDO.
--- NOTE | 2019-05-11 05:55 | NUR ---
RECEIVED FROM ER PER MALIK AWAKE, ALERT AND ABLE TO VERBALIZE WELL IN [place]. UPPER EXTREMITIES WEAK AND NOTED UNABLE TO MOVE. DX. OF PNEUMONIA. AFEBRILE. TEMPERATURE PER TEMPORAL 98.6. HD PT. WITH LEFT UPPER ARM FISTULA AND LEFT CHEST WALL TESIO CATHETER IN PLACE. IVF SITE TO RIGHT SHOULDER #22. WITH SACRAL SUPERFICIAL WOUND NOTED. ON 02 AT 2LPM/NC AND 02 SAT OF 99%. WILL ENDORSE TO AM RN FOR CONTINUITY OF CARE.
[2019-05-11 06:17] VITALS: BP 123/75
--- NOTE | 2019-05-11 07:07 | NUR ---
PATIENT HAS BEEN SCREENED AND CATEGORIZED MODERATE NUTRITION RISK. PATIENT WILL BE SEEN WITHIN 3-5 DAYS OF ADMISSION. 05/13/19-05/15/19 SANGEETHA ZAMBRANO MS, RDN
--- NOTE | 2019-05-11 07:26 | NUR ---
RECEIVED BEDSIDE SHIFT REPORT FROM SKIP HOIST OPERATOR NURSE FOR CONTINUATION OF CARE. PATIENT HAS A HX OF IV HEROIN USE, PATIENT REPORTS BEING ON METHADONE, GOVERNMENT DOCUMENTS LIBRARIAN TO CALL [facility] TO CLARIFY METHADONE ORDER. PATIENT HAS NOTABLE TRACK STEIN FROM IV DRUG USE ON BOTH ARMS, IV IS PLACED IN THE RIGHT ANTERIOR SHOULDER. PATIENT REQUIRES TOTAL ASSISTANCE, PATIENT REPORTS BEING PARALYZED BUT NO HISTORY OF SCI OR NEUROLOGICAL DISABILITY TO PROVE THIS SELF-DIAGNOSIS. EDUCATED ON THE CALL LIGHT AND VERBALIZED UNDERSTANDING. BED IS IN LOW POSITION, CALL LIGHT ON AND WITHIN REACH. WILL CONTINUE TO MONITOR.
[2019-05-11] MEDS ORDERED: ONDANSETRON 4 MG TAB PO PRN (08:05)
[2019-05-11] MEDS ORDERED: HYDROcodone/APAP 10/325 MG 1 TAB TAB PO PRN (08:05)
[2019-05-11] MEDS: PANTOPRAZOLE 40 MG TABEC PO SCH (09:00)
[2019-05-11] MEDS: amLODIPine 5 MG TAB PO SCH (09:00)
[2019-05-11] MEDS: DOCUSATE 100 MG/10 ML UDC PO SCH (09:00)
[2019-05-11] MEDS: BISACODYL 5 MG TABEC PO SCH (09:00)
[2019-05-11] MEDS: MINOXIDIL 10 MG TAB PO SCH (09:00)
[2019-05-11] MEDS: LABETALOL 200 MG TAB PO SCH (09:00)
[2019-05-11] MEDS ORDERED: ALPRAZolam 0.5 MG TAB PO SCH (09:00)
--- NOTE | 2019-05-11 09:00 | NUR ---
PATIENT PRESENTS IRRITABLE AND IS UNABLE TO MOVE, REQUIRING TOTAL ASSISTANCE INCLUDING FEEDING. SHE IS ABLE TO SWALLOW AND CHEW FOOD COMPETENTLY. PATIENT HAS A HISTORY OF HYPOGLYCEMIA AND REQUIRES FREQUENT EDUCATION TO REPORT SIGNS AND SYMPTOMS OF LOW BLOOD SUGAR. CALL LIGHT ON AND WITHIN REACH. WILL CONTINUE TO MONITOR.
--- NOTE | 2019-05-11 11:00 | NUR ---
SISTER DANYELLE VÁZQUEZ LEFT HER PHONE NUMBER IN CASE OF EMERGENCY: [phone]. PATIENT IS RESTING IN BED, DAUGHTER AT BEDSIDE. MEDICATION RECONCILIATION IN PROCESS. CALLED [facility] TO VERIFY METHADONE DOSE, THEY CONFIRMED DOSE, PATIENT HAS METHADONE SUPPLY AT HOME THAT IS TO BE PROVIDED BY FAMILY. PHARMACY AWARE. BED IS IN LOW POSITION, CALL LIGHT ON AND WITHIN REACH. WILL CONTINUE TO MONITOR.
[2019-05-11] MEDS: BLOOD GLUCOSE MONITORING 1 DEV DEV FS SCH ×3 (11:30→20:30)
[2019-05-11] MEDS ORDERED: TEMAZEPAM 15 MG CAP PO PRN (12:15)
--- NOTE | 2019-05-11 13:30 | NUR ---
HEMODIALYSIS CONSENT SIGNED PER MD'S ORDERS, DIALYSIS IN PREPARATION, PATIENTS VITAL SIGNS ARE STABLE AT THIS TIME. VISITOR AT BEDSIDE. BLOOD SUGAR 65, NO INTERVENTION REQUIRED. WILL CONTINUE TO MONITOR.
[2019-05-11] MEDS ORDERED: LEVOFLOXACIN 500 MG/D5W PREMIX 100 ML IV SCH (14:25)
[2019-05-11] MEDS ORDERED: ONDANSETRON 4 MG/2 ML VIAL IVP PRN (14:25)
[2019-05-11] MEDS ORDERED: LORazepam 2 MG/ML VIAL IVP PRN (14:25)
[2019-05-11] MEDS ORDERED: ACETAMINOPHEN 325 MG TAB PO PRN (14:25)
[2019-05-11] MEDS ORDERED: HYDROcodone/APAP 5/325 MG 1 TAB TAB PO PRN (14:25)
[2019-05-11] MEDS ORDERED: ALBUTEROL 0.083% 2.5 MG/3 ML NEBU INH PRN (14:40)
[2019-05-11 16:00] VITALS: BP 122/61
[2019-05-11] MEDS ORDERED: COMMUNICATION ORDER MC PRN (16:15)
--- NOTE | 2019-05-11 17:00 | NUR ---
2.5 L REMOVED DURING DIALYSIS, TOLERATED HEMODIALYSIS WELL. BLOOD PRESSURE STABLE. PATIENT IS SLEEPING IN BED, BED IN LOW POSITION, CALL LIGHT ON AND WITHIN REACH. MD ORDERED CONSULT WITH RESPIRATORY MD FOR RESPIRATORY FAILURE. EDUCATED ON THE CALL LIGHT, WILL CONTINUE TO MONITOR.
[2019-05-11] MEDS: GLUCOSE PO PRN (17:45)
--- NOTE | 2019-05-11 19:21 | NUR ---
RECEIVED PATIENT IN STABLE CONDITION FROM AM SHIFT NURSE FOR CONTINUITY OF CARE. FAMILY AT BEDSIDE. RESPIRATIONS EVEN, UNLABORED. CONTINUES ON O2 2L NC. IV SITE TO RIGHT SHOULDER 22G PATENT/INTACT. NO C/O PAIN. NO S/SX ACUTE DISTRESS. TOTAL ASSIST FOR ALL ADLS. CALL LIGHT WITHIN REACH. WILL CONTINUE TO MONITOR.
--- NOTE | 2019-05-11 19:22 | NUR ---
BEDSIDE SHIFT REPORT GIVEN TO BALLOON SELLER NURSE FOR CONTINUATION OF CARE.
[2019-05-11] MEDS ORDERED: ALPRAZolam 0.25 MG TAB ONE ×2 (19:47→19:53)
[2019-05-11] MEDS: ALPRAZolam 0.5 MG TAB PO PRN (19:51)
[2019-05-11] MEDS: IPRATROPIUM 0.02% 0.5 MG/2.5 ML NEBU INH SCH (19:53)
--- NOTE | 2019-05-11 20:07 | NUR ---
RECEIVED PT FROM AM SHIFT. PT IN NO APPARENT RESPIRATORY DISTRESS AT THIS TIME; HR 77, RR 20, SPO2 97% ON 1L NC. CLEAR DIMINISHED BREATH SOUNDS. HHN TX GIVEN ORDERED WITH NO ADVERSE REACTION. BVM AT BEDSIDE AND HOB > 30. WILL CONTINUE TO MONITOR PT.
[2019-05-11] MEDS: hydrALAZINE 25 MG TAB PO SCH (20:30)
[2019-05-11] MEDS ORDERED: VANCOMYCIN PER PHARMACY MC PRN (20:40)
[2019-05-11] MEDS ORDERED: VANCOMYCIN HCL 1,250 MG in NACL 0.9% 250 ML IV SCH (21:00)
[2019-05-11] MEDS ORDERED: METHADONE 10 MG TAB PO SCH (21:00)
[2019-05-11] MEDS ORDERED: TEMAZEPAM 15 MG CAP PO SCH (21:00)
[2019-05-11] MEDS: METHADONE PO SCH (21:08)
--- NOTE | 2019-05-11 21:15 | NUR ---
PATIENT CONTINUES IN STABLE CONDITION. NO C/O PAIN. NO S/SX ACUTE DISTRESS. BLOOD GLUCOSE 138 MG/DL. CALL LIGHT WITHIN REACH. WILL CONTINUE TO MONITOR.
--- NOTE | 2019-05-11 22:00 | NUR ---
PATIENT HAS OWN SUPPLY OF METHADONE AND WAS GIVEN HER LAST DOSE AT 2100. TALKED TO DAUGHTER DORYS OVER THE PHONE AND SHE SAID SHE WILL BE AT THE HOSPITAL AT 8AM TOMORROW MORNING TO BRING MORE DOSES FOR HER MOTHER. PATIENT IS CURRENTLY AWAKE AND EATING ICE CHIPS. NO C/O PAIN. NO S/SX ACUTE DISTRESS. CALL LIGHT WITHIN REACH. WILL CONTINUE TO MONITOR.
[2019-05-12] VITALS: BP 143/90
[2019-05-12] MEDS ORDERED: VANCOMYCIN 500 MG VIAL ONE (00:19)
[2019-05-12] MEDS ORDERED: VANCOMYCIN 1,000 MG VIAL ONE (00:19)
--- NOTE | 2019-05-12 01:00 | NUR ---
PATIENT ASLEEP AND IN STABLE CONDITION. NO C/O PAIN. NO S/SX ACUTE DISTRESS NOTED. CALL LIGHT WITHIN REACH. WILL CONTINUE TO MONITOR.
[2019-05-12] MEDS: IPRATROPIUM 0.02% 0.5 MG/2.5 ML NEBU INH SCH ×4 (01:18→19:41)
--- NOTE | 2019-05-12 03:00 | NUR ---
IV SITE NOT FLUSHING WELL. CHANGED IV SITE TO CHEST 20G. NO C/O PAIN. NO S/SX ACUTE DISTRESS. CALL LIGHT WITHIN REACH. WILL CONTINUE TO MONITOR.
--- NOTE | 2019-05-12 03:00 | NUR ---
PATIENT ASLEEP AND IN STABLE CONDITION. NO C/O PAIN. NO S/SX ACUTE DISTRESS NOTED. CALL LIGHT WITHIN REACH. WILL CONTINUE TO MONITOR.
[2019-05-12] MEDS: GLUCOSE PO PRN ×3 (05:20→16:48)
--- NOTE | 2019-05-12 06:15 | NUR ---
PATIENT NOTED TO BE DIAPHORETIC. PATIENT IS STILL ALERT AND ABLE TO RESPOND. CHECKED BLOOD GLUCOSE LEVEL AT 47 MG/DL. GAVE GLUCOSE GUMMIES ORDERED. PATIENT REQUESTED ORANGE JUICE WELL. BLOOD SUGAR RECHECKED AT 66 MG/DL. PATIENT HAS NO C/O OF HYPOGLYCEMIC SYMPTOMS. NO C/O PAIN. NO S/SX ACUTE DISTRESS NOTED. CALL LIGHT WITHIN REACH. WILL CONTINUE TO MONITOR.
--- NOTE | 2019-05-12 07:10 | NUR ---
RECEIVED BEDSIDE REPORT FROM NIGHTSHIFT NURSE. PT RESTING IN BED UPON ARRIVAL. ABLE TO MAKE NEEDS KNOWN. RESPIRATIONS EVEN AND UNLABORED WITH NO SOB OR RESPIRATORY DISTRESS. SKIN WARM AND DRY TO TOUCH. IV SITE IN CHEST 20G IS CLEAN, DRY, AND INTACT. SAFETY MEASURES IN PLACE. WILL CONTINUE TO MONITOR.
[2019-05-12 08:00] VITALS: BP 155/78
[2019-05-12] MEDS: BLOOD GLUCOSE MONITORING 1 DEV DEV FS SCH ×4 (08:06→21:00)
--- NOTE | 2019-05-12 08:10 | NUR ---
PT BLOOD SUGAR WAS 43. PRN GLUCOSE GUMMIES ADMINISTERED PRESCRIBED PER MD ORDER. SAFETY MEASURES IN PLACE. WILL CONTINUE TO MONITOR
[2019-05-12] MEDS ORDERED: METHADONE 10 MG TAB PO SCH (09:00)
--- NOTE | 2019-05-12 09:05 | NUR ---
DAUGHTER GAVE GLASSWARE DEFECT REPAIRER HOME DOSE OF METHADONE. METHADONE WILL BE ADMINISTERED WITH MORNING MEDICATIONS. THE OTHER METHADONE IS SAFELY STORED IN THE NARC LOCK BOX. PER DAUGHTERS REQUEST, SHE WILL BE GIVING US THE 2 DAILY DOSES OF METHADONE SINCE SHE DOES NOT WANT IT STORED IN OUR PHARMACY. PHARMACY IS AWARE. SAFETY MEASURES IN PLACE. WILL CONTINUE TO MONITOR.
[2019-05-12] MEDS: hydrALAZINE 25 MG TAB PO SCH ×2 (09:25→22:09)
--- NOTE | 2019-05-12 09:25 | NUR ---
ADMINISTERED SCHED MED PRESCRIBED PER MD ORDER. PT TOLERATED WELL. MEDICATION EDUCATION PERFORMED. PT VERBALIZED UNDERSTANDING. SAFETY MEASURES IN PLACE. WILL CONTINUE TO MONITOR.
[2019-05-12] MEDS: amLODIPine 5 MG TAB PO SCH (09:28)
[2019-05-12] MEDS: LABETALOL 200 MG TAB PO SCH (09:29)
[2019-05-12] MEDS: BISACODYL 5 MG TABEC PO SCH (09:30)
[2019-05-12] MEDS: DOCUSATE 100 MG/10 ML UDC PO SCH (09:30)
[2019-05-12] MEDS: PANTOPRAZOLE 40 MG TABEC PO SCH (09:31)
[2019-05-12] MEDS: MINOXIDIL 10 MG TAB PO SCH (09:32)
[2019-05-12] MEDS: METHADONE PO SCH ×2 (10:29→21:00)
--- NOTE | 2019-05-12 10:31 | NUR ---
ADMINISTERED SCHED MED PRESCRIBED PER MD ORDER. PT TOLERATED WELL. MEDICATION EDUCATION PERFORMED. PT VERBALIZED UNDERSTANDING. SAFETY MEASURES IN PLACE. WILL CONTINUE TO MONITOR.
[2019-05-12] MEDS: OSELTAMIVIR PHOSPHATE 75 MG CAP PO SCH (11:37)
--- NOTE | 2019-05-12 11:39 | NUR ---
ADMINISTERED SCHED MED PRESCRIBED PER MD ORDER. PT TOLERATED WELL. MEDICATION EDUCATION PERFORMED. PT VERBALIZED UNDERSTANDING. SAFETY MEASURES IN PLACE. WILL CONTINUE TO MONITOR.
--- NOTE | 2019-05-12 12:15 | NUR ---
PT REFUSED TO BE TURN AND CHANGED BY BOTH CAPTAIN WAITER AND NURSE. EDUCATED PT ON IMPORTANCE OF REPOSITIONING YET THE PT STILL REFUSED. PT STATED, "I WANT TO BE LEFT ALONE SO I CAN SLEEP. I DON'T WANT TO BE TURNED AND CHANGED." SAFETY MEASURES IN PLACE. WILL CONTINUE TO MONITOR.
--- NOTE | 2019-05-12 13:45 | NUR ---
HOURLY ROUNDING. PT RESTING IN BED UPON ARRIVAL. ABLE TO MAKE NEEDS KNOWN. RESPIRATIONS EVEN AND UNLABORED WITH NO SOB OR RESPIRATORY DISTRESS. SKIN WARM AND DRY TO TOUCH. SAFETY MEASURES IN PLACE. WILL CONTINUE TO MONITOR.
[2019-05-12 16:00] VITALS: BP 123/68
--- NOTE | 2019-05-12 16:48 | NUR ---
ADMINISTERED SCHED MED PRESCRIBED PER MD ORDER. PT TOLERATED WELL. MEDICATION EDUCATION PERFORMED. PT VERBALIZED UNDERSTANDING. SAFETY MEASURES IN PLACE. WILL CONTINUE TO MONITOR.
--- NOTE | 2019-05-12 19:42 | NUR ---
ENDORSED TO NIGHTSHIFT NURSE. PT IS STABLE.
--- NOTE | 2019-05-12 19:43 | NUR ---
RECEIVED BEDSIDE REPORT FROM AM SHIFT NURSE. PATIENT IS LYING IN BED WITH FAMILY MEMBERS AT BEDSIDE. NO SOB OR DISTRESS NOTED. PATIENT RECEIVING BREATHING TREATMENT AT THIS TIME. IV ACCESS ON CHEST 20 GAUGE. PATENT AND INTACT. PATIENT NOTED WITH AV FISTULA ON LEFT UPPER ARM. BED IN LOW. SAFETY MEASURES IN PLACE. INITIAL ASSESSMENT DONE. CALL LIGHT WITHIN PATIENT REACH. WILL CONTINUE TO MONITOR PATIENT.
--- NOTE | 2019-05-12 19:47 | NUR ---
RECEIVED PT FROM AM SHIFT. PT IN NO APPARENT RESPIRATORY DISTRESS AT THIS TIME; HR 65, RR 18, SPO2 94% ON 1L NC. CLEAR DIMINISHED BREATH SOUNDS ON THE UPPER LOBES. HHN TX GIVEN ORDERED WITH NO ADVERSE REACTION. BVM AT BEDSIDE AND HOB > 30. WILL CONTINUE TO MONITOR PT.
--- NOTE | 2019-05-12 21:09 | NUR ---
LAB CALLED TO NOTIFY THAT PATIENT REFUSED BLOOD DRAW AT THIS TIME.
[2019-05-12] MEDS: ALPRAZolam 0.5 MG TAB PO PRN ×2 (22:24→23:00)
--- NOTE | 2019-05-12 22:26 | NUR ---
PATIENT HAD A BLOOD GLUCOSE RESULT OF 86. WILL CONTINUE TO MONITOR PATIENT.
[2019-05-13 00:05] VITALS: BP 131/72
--- NOTE | 2019-05-13 00:10 | NUR ---
VITALS TAKEN AT THIS TIME. VISIBLE CHEST RISE AND FALL NOTED. WILL CONTINUE TO MONITOR PATIENT.
--- NOTE | 2019-05-13 01:00 | NUR ---
WOUND ASSESSMENT AND PICTURE TAKING DONE OF SACRAL AREA.
[2019-05-13] MEDS: IPRATROPIUM 0.02% 0.5 MG/2.5 ML NEBU INH SCH ×4 (01:40→19:35)
--- NOTE | 2019-05-13 04:25 | NUR ---
ROUNDS DONE AT THIS TIME. VISIBLE CHEST RISE AND FALL NOTED. WILL CONTINUE TO MONITOR PATIENT.
[2019-05-13] MEDS: BLOOD GLUCOSE MONITORING 1 DEV DEV FS SCH ×4 (06:11→21:00)
--- NOTE | 2019-05-13 06:20 | NUR ---
PATIENT HAD A BLOOD GLUCOSE RESULT OF 75 FOR MONITORING.
--- NOTE | 2019-05-13 06:22 | NUR ---
PATIENT IN STABLE CONDITION. NO DISTRESS NOTED. CALL LIGHT WITHIN PATIENT REACH. WILL ENDORSE TO AM SHIFT NURSE FOR CONTINUITY OF CARE.
--- NOTE | 2019-05-13 07:00 | NUR ---
PATIENT REFUSED LABS TO BE DRAWN
--- NOTE | 2019-05-13 07:10 | NUR ---
RECEIVED PATIENT FROM FIRE BATTALION CHIEF NURSE FOR CONTINUITY OF CARE. PATIENT IS ASLEEPING AT THIS TIME. RESPIRATIONS EVEN AND UNLABORED, 2L O2 VIA NC. VISIBLE CHEST RISE NOTED. MED-SURG. ABDOMEN SOFT, ROUND, NONTENDER. BOWEL SOUNDS ACTIVE X4 QUADS. SKIN WARM, DRY. BILAT UPPER ARMS SCABS. IV IN THE LEFT CHEST G20, SALINE LOCK. IV PATENT AND FLUSHING WELL. PATIENT IS BEDBOUND, FALL AND DROPLET PRECAUTIONS PRECAUTIONS. BED IN LOW POSITION. CALL LIGHT IS WITHIN REACH. WILL CONTINUE TO MONITOR.
--- NOTE | 2019-05-13 07:11 | NUR ---
WOUND IN THE SACRAL NOTED. PICTURES ALREADY TAKEN BY SIX SIGMA BLACK BELT ENGINEER NURSE
[2019-05-13 08:00] VITALS: BP 141/76
[2019-05-13] MEDS: PANTOPRAZOLE 40 MG TABEC PO SCH (08:59)
[2019-05-13] MEDS: OSELTAMIVIR PHOSPHATE 75 MG CAP PO SCH (08:59)
[2019-05-13] MEDS: BISACODYL 5 MG TABEC PO SCH (08:59)
[2019-05-13] MEDS: amLODIPine 5 MG TAB PO SCH (08:59)
[2019-05-13] MEDS: LABETALOL 200 MG TAB PO SCH (08:59)
[2019-05-13] MEDS: METHADONE PO SCH ×2 (09:00→21:07)
[2019-05-13] MEDS: hydrALAZINE 25 MG TAB PO SCH ×2 (09:00→21:00)
[2019-05-13] MEDS: DOCUSATE 100 MG/10 ML UDC PO SCH (09:00)
[2019-05-13] MEDS: MINOXIDIL 10 MG TAB PO SCH (09:00)
--- NOTE | 2019-05-13 09:30 | NUR ---
GIVEN MORNING MEDICATIONS PO SCHEDULED. EXPLAINED TO PATIENT MEDS AND SIDE EFFECTS. PATIENT VERBALIZED UNDERSTANDING. WILL CONTINUE TO MONITOR.
--- NOTE | 2019-05-13 10:40 | NUR ---
PATIENT IS SLEEPING BUT OPEN EYES WHEN NAME IS CALLED. ON 2L O2 VIA NC. BED IN LOW POSITION. CALL LIGHT IS WITHIN REACH. WILL CONTINUE TO MONITOR
--- NOTE | 2019-05-13 11:03 | NUR ---
HANDED OUT THE 2 METHADONE BOTTLES. WILL TAKE IT TO PHARMACY
--- NOTE | 2019-05-13 11:09 | NUR ---
PHARMACY SAID TO PUT IT IN THE NARCOTIC BOX. WILL DO
--- NOTE | 2019-05-13 11:30 | NUR ---
BLOOD GLUCOSE CHECK: 53. WILL GIVE GLUCOSE GUMMY
--- NOTE | 2019-05-13 11:32 | NUR ---
GIVEN GLUCOSE GUMMIES FOR LOW BLOOD GLUCOSE. AT BEDSIDE.
--- NOTE | 2019-05-13 11:45 | NUR ---
DC [age] YRS OLD FEMALE PATIENT WAS ADMITTED FROM HOME WITH A DX OF PNEUMONIA. PT HAS A HX OF UTERINE CA, HTN, ESRD, CHRONIC PAIN, AND PNA. HEMODIALYSIS ON TTHS ,CXRAY SHOWED POSSIBLE SMALL PLEURAL EFFUSION, PNEUMONIA. SEEN BY DR RENEE SHEPARD ,STARTED ON TAMIFLU, LEVAQUIN AND VANCOMYCIN CONSULT WITH DR RAYMOND LOPEZ AND NEPHRO CONSULT WITH DR MARTINEZ. DC PLAN TO GO HOME WHEN STABLE CM TO FOLLOW Addendum: 05/14/19 at 1040 by Cathy Hooks CM DC PLANNING: SEEN BY DR RENEE SHEPARD CONTINUE CURRENT THERAPY LEVAQUIN ,VANCO AND TAMIFLU , (-) BLOOD CULTURES HEMODIALYSIS TODAY. DC PLAN TO GO HOME WHEN STABLE CM TO FOLLOW Addendum: 05/17/19 at 1602 by Alejandra Marks CM Received order to arrange services for PT. Met with pt and family at the bedside. Pt aware and agreeable with plan. Pt reported she had HH services in the past with [facility] . Sw called [facility] who stated they're no longer contracted with pt's insurance. Javier called pt's [facility] for contracted companies; spoke to rep Whatley who stated she was unable to find a contracted agency. There asked for orders and PT notes to be faxed to [phone] - ATTN Department. Ref#[id number]. Javier will continue following up as needed. Alejandra Marks, ACSW/CM Ext [phone]
--- NOTE | 2019-05-13 12:24 | NUR ---
RECHECK BLOOD SUGAR 63. ASSISTED PATIENT TO DRINK CRANBERRY JUICE. WILL RECHECK BLOOD SUGAR
--- NOTE | 2019-05-13 13:23 | NUR ---
PATIENT REFUSED FOR BLOOD SUGAR TO BE CHECKED. GIVEN CRANBERRY JUICE TO BRING SUGAR BACK UP. WILL CONTINUE TO MONITOR
[2019-05-13] MEDS: ALPRAZolam 0.5 MG TAB PO PRN ×2 (13:26→23:02)
--- NOTE | 2019-05-13 13:26 | NUR ---
GIVEN XANAX BECAUSE PATIENT IS HAVING ANXIETY AND AGITATED. EXPLAINED TO PATIENT MED AND SIDE EFFECTS. PATIENT VERBALIZED UNDERSTANDING. WILL CONTINUE TO MONITOR
--- NOTE | 2019-05-13 14:01 | NUR ---
PATIENT IS SLEEPING COMFORTABLY AT THIS TIME. NO SIGNS OF DISTRESS NOTED. BED IN LOW POSITION. CALL LIGHT IS WITHIN REACH. WILL CONTINUE TO MONITOR
--- NOTE | 2019-05-13 15:47 | NUR ---
PATIENT IS SLEEPING BUT OPEN EYES WHEN NAME IS CALLED. WILL CONTINUE TO MONITOR
[2019-05-13 16:00] VITALS: BP 114/58
--- NOTE | 2019-05-13 16:14 | NUR ---
OFFERED BLANKET TO THE PATIENT
--- NOTE | 2019-05-13 16:29 | NUR ---
BLOOD SUGAR CHECK: 68. OFFERED CRANBERRY JUICE TO THE PATIENT
--- NOTE | 2019-05-13 16:43 | NUR ---
FAMILY AT BEDSIDE.
--- NOTE | 2019-05-13 16:45 | NUR ---
PATIENT IS TRYING TO FEED PATIENT WITH CAKE TO BRING BLOOD SUGAR UP
[2019-05-13] MEDS: HYDROcodone/APAP 5/325 MG 1 TAB TAB PO PRN (17:12)
--- NOTE | 2019-05-13 17:16 | NUR ---
GIVEN NORCO FOR 6/10 ABD PAIN. EXPLAINED TO PT AND FAMILY MED AND SIDE EFFECT. PATIENT AND FAMILY VERBALIZED UNDERSTANDING. WILL CONTINUE TO MONITOR
--- NOTE | 2019-05-13 17:31 | NUR ---
RECHECK BLOOD SUGAR. 73.
--- NOTE | 2019-05-13 19:08 | NUR ---
ENDORSED PATIENT TO THE MUSIC COPYIST NURSE SUKI FOR CONTINUITY OF CARE. PATIENT IS IN STABLE CONDITION
--- NOTE | 2019-05-13 19:08 | NUR ---
DR. DONATO MADE ROUNDS. MADE AWARE THAT NORCO IS NOT HELPING PATIENT'S PAIN.
--- NOTE | 2019-05-13 19:13 | NUR ---
ENDORSED PATIENT TO THE TRANSFORMER MAKER NURSE YOUSIF FOR CONTINUITY OF CARE. PATIENT IS IN STABLE CONDITION Addendum: 05/13/19 at 1924 by Princess Paulette Lackey RN DISREGARD. WRONG ENTRY
--- NOTE | 2019-05-13 19:14 | NUR ---
RECEIVED BEDSIDE REPORT FROM AM SHIFT NURSE. PATIENT IS LYING IN BED WITH FAMILY MEMBERS AT BEDSIDE. NO SOB OR DISTRESS NOTED. ON 2LPM VIA NASAL CANNULA. IV ACCESS ON LEFT CHEST 20 GAUGE, PATENT INTACT AND INFUSING WELL. NOTED WITH SCARS ON BUE. BED IN LOW, SAFETY MEASURES IN PLACE. INITIAL ASSESSMENT DONE. CALL LIGHT PLACED WITHIN PATIENT REACH. WILL CONTINUE TO MONITOR PATIENT.
[2019-05-13] MEDS: LEVOFLOXACIN 250 MG/D5 PREMIX 50 ML IV SCH (21:07)
--- NOTE | 2019-05-13 21:17 | NUR ---
HYDRALAZINE HELD AT THIS TIME FOR LOW BLOOD PRESSURE OF 109/61 AND PULSE OF 69. WILL CONTINUE TO MONITOR PATIENT.
--- NOTE | 2019-05-13 21:58 | NUR ---
PATIENT HAD A BLOOD GLUCOSE MONITORING RESULT OF 82. Addendum: 05/13/19 at 2159 by Edyta Starr RN PATIENT IN STABLE CONDITION. RESTING WITH EYES CLOSED. WILL CONTINUE TO MONITOR PATIENT.
--- NOTE | 2019-05-13 23:02 | NUR ---
PRN XANAX GIVEN AT THIS TIME PER PATIENT REQUEST FOR ANXIETY. NO DISTRESS NOTED. WILL CONTINUE TO MONITOR PATIENT.
[2019-05-14] VITALS: BP 121/62
--- NOTE | 2019-05-14 00:45 | NUR ---
SPOKE WITH MD. FAMILY STATES THAT PATIENT HAS NOT HAD A BM 6 DAYS PRIOR TO ADMISSION AND PATIENT HAS NOT RECEIVED BM WHILE IN UNIT. NEW ORDERS WERE GIVEN AND CARRIED OUT.
[2019-05-14] MEDS: IPRATROPIUM 0.02% 0.5 MG/2.5 ML NEBU INH SCH ×4 (01:35→19:54)
[2019-05-14] MEDS ORDERED: SODIUM PHOSPHATE 118 ML ENEM RC SCH (01:50)
--- NOTE | 2019-05-14 03:39 | NUR ---
ROUNDS DONE. VISIBLE CHEST RISE AND FALL NOTED. CALL LIGHT PLACED WITHIN PATIENT REACH. WILL CONTINUE TO MONITOR PATIENT.
--- NOTE | 2019-05-14 06:15 | NUR ---
FLEET ENEMA GIVEN AT THIS TIME PER MD ORDER.
--- NOTE | 2019-05-14 06:35 | NUR ---
PATIENT HAD A BLOOD GLUCOSE MONITORING RESULT OF 49. 2 GUMMIES GIVEN AT THIS TIME.
[2019-05-14] MEDS: BLOOD GLUCOSE MONITORING 1 DEV DEV FS SCH ×4 (07:14→20:40)
--- NOTE | 2019-05-14 07:15 | NUR ---
PATIENT IN STABLE CONDITION. CALL LIGHT WITHIN PATIENT REACH. WILL ENDORSE TO AM SHIFT NURSE FOR CONTINUITY OF CARE.
--- NOTE | 2019-05-14 07:16 | NUR ---
RECEIVED PATIENT FROM EXAMINING OFFICER NURSE FOR CONTINUITY OF CARE. PATIENT IS ASLEEPING AT THIS TIME. RESPIRATIONS EVEN AND UNLABORED, 2L O2 VIA NC. VISIBLE CHEST RISE NOTED. MED-SURG. ABDOMEN SOFT, ROUND, NONTENDER. BOWEL SOUNDS ACTIVE X4 QUADS. SKIN WARM, DRY. BILAT UPPER ARMS SCARS. IV IN THE LEFT CHEST G20, SALINE LOCK. IV PATENT AND FLUSHING WELL. PATIENT IS BEDBOUND, FALL AND DROPLET PRECAUTIONS PRECAUTIONS. BED IN LOW POSITION. CALL LIGHT IS WITHIN REACH. WILL CONTINUE TO MONITOR.
[2019-05-14 07:21] LABS: BASOPHILS % (AUTO) 0.6 % (0.0-2.0); EOSINOPHILS # (AUTO) 0.1 K/uL (0-0.4); EOSINOPHILS % (AUTO) 3.2 % (0.0-4.0); HEMATOCRIT 26.1 % (36-48); HEMOGLOBIN 8.4 g/dL (12.0-16.0); LYMPHOCYTES # (AUTO) 0.6 K/uL (2.5-16.5); LYMPHOCYTES % (AUTO) 22.2 % (20.5-51.1); MEAN CORPUSCULAR HEMOGLOBIN 28 pg (27-31); MEAN CORPUSCULAR HGB CONC 32 g/dL (33-37); MEAN CORPUSCULAR VOLUME 87.9 fL (80-94); MONOCYTES # (AUTO) 0.4 K/uL (0.8-1.0); MONOCYTES % (AUTO) 12.4 % (1.7-9.3); NEUTROPHILS # (AUTO) 1.7 K/uL (1.8-7.7); NEUTROPHILS % (AUTO) 61.6 % (42.2-75.2); PLATELET COUNT (AUTO) 116 K/uL (140-450); RED BLOOD CELL COUNT(AUTO) 2.97 MIL/uL (4.20-5.40); RED CELL DISTRIBUTION WIDTH 18.7 % (11.6-13.7); WHITE BLOOD COUNT (AUTO) 2.8 K/uL (4.8-10.8)
[2019-05-14 07:23] LABS: ANION GAP 14.9 (8-16); CARBON DIOXIDE 28.2 mmol/L (21-32); POTASSIUM 5.1 mmol/L (3.5-5.1)
--- NOTE | 2019-05-14 07:30 | NUR ---
RECHECK BLOOD SUGAR: 48. ASSISTING PATIENT TO DRINK CRANBERRY JUICE. WILL RECHECK BLOOD SUGAR
--- NOTE | 2019-05-14 07:49 | NUR ---
Late entry. COnfirmed with RN that Levaquin IV completed at 0330
--- NOTE | 2019-05-14 07:59 | NUR ---
PATIENT IS GETTING DIALYSIS AT THIS TIME
[2019-05-14 08:00] VITALS: BP 112/71
[2019-05-14 08:14] LABS: MAGNESIUM 1.8 mg/dL (1.8-2.4); PHOSPHORUS 6.1 mg/dL (2.5-4.9)
--- NOTE | 2019-05-14 08:14 | NUR ---
RECHECK BLOOD SUGAR: 97
[2019-05-14] MEDS: DOCUSATE 100 MG/10 ML UDC PO SCH (08:15)
--- NOTE | 2019-05-14 08:15 | NUR ---
GIVEN MORNING MEDICATIONS PO. HELD BP MEDICATIONS BECAUSE PATIENT HAS SCHEDULED DIALYSIS. GIVEN XANAX FOR ANXIETY. EXPLAINED TO PATIENT MED AND SIDE EFFECTS. PATIENT VERBALIZED UNDERSTANDING. WILL CONTINUE TO MONITOR
[2019-05-14] MEDS: BISACODYL 5 MG TABEC PO SCH (08:16)
[2019-05-14] MEDS: POLYETHYLENE GLYCOL 17 GM/PKT PO SCH (08:16)
[2019-05-14] MEDS: OSELTAMIVIR PHOSPHATE 75 MG CAP PO SCH (08:16)
[2019-05-14] MEDS: PANTOPRAZOLE 40 MG TABEC PO SCH (08:16)
[2019-05-14 08:32] LABS: CREATININE 5.8 mg/dL (0.6-1.3)
--- NOTE | 2019-05-14 08:32 | NUR ---
CRITICAL LAB: CREATININE 5.8. WILL INFORM DR. DONATO
[2019-05-14] MEDS: METHADONE PO SCH ×2 (09:00→20:45)
[2019-05-14] MEDS: MINOXIDIL 10 MG TAB PO SCH (09:00)
[2019-05-14] MEDS: LABETALOL 200 MG TAB PO SCH (09:00)
[2019-05-14] MEDS: amLODIPine 5 MG TAB PO SCH (09:00)
[2019-05-14] MEDS: hydrALAZINE 25 MG TAB PO SCH ×2 (09:00→20:25)
[2019-05-14] MEDS: ALPRAZolam 0.5 MG TAB PO PRN ×2 (09:12→17:09)
--- NOTE | 2019-05-14 10:30 | NUR ---
DIALYSIS IS DONE. OUTPUT OF 3L. PATIENT IS STABLE
--- NOTE | 2019-05-14 11:30 | NUR ---
BLOOD GLUCOSE CHECK: 54. GIVEN CRANBERRY JUICE AND APPLESAUCE. WILL RECHECK
--- NOTE | 2019-05-14 11:31 | NUR ---
GIVEN GLUCOSE GUMMIES PO FOR BLOOD SUGAR 54. WILL RECHECK BLOOD SUGAR
--- NOTE | 2019-05-14 12:04 | NUR ---
PAGED TANMAY AKHTAR TO GET AN ORDER FOR FLUIDS THAT WILL HOPEFULLY BRING PATIENT'S BLOOD SUGAR UP. WILL WAIT FOR CALL BACK
--- NOTE | 2019-05-14 12:16 | NUR ---
RECHECKED BLOOD SUGAR: 71. GIVEN TWO PACKETS OF SUGAR AND CRANBERRY JUICE. WILL RECHECK
--- NOTE | 2019-05-14 12:20 | NUR ---
WILL GIVE SCHEDULED METHADONE. EXPLAINED MED AND SIDE EFFECTS. PATIENT VERBALIZED UNDERSTANDING. BED IN LOW POSITION. CALL LIGHT IS WITHIN REACH. WILL CONTINUE OT MONITOR
[2019-05-14] MEDS ORDERED: VANCOMYCIN 1,000 MG in DEXTROSE 5% 250 ML IV SCH (13:00)
--- NOTE | 2019-05-14 13:25 | NUR ---
PATIENT REFUSED LUNCH. EDUCATED PATIENT THAT WE NEED TO BRING HER BLOOD SUGAR UP. GIVEN 3 PACKETS OF SUGAR. GIVEN CRANBERRY JUICE. NEPHRO SUPPLEMENT ONLY 2 SIPS. DAUGHTER, DORYS IS AWARE. SHE STATED SHE'LL TRY TO FEED HER MOM.
--- NOTE | 2019-05-14 13:30 | NUR ---
PAGED DR. VALERINAO DONATO AGAIN. WILL WAIT FOR CALL BACK
--- NOTE | 2019-05-14 13:32 | NUR ---
DR. VALERIANO DONATO MADE VERBAL ORDER FOR D51/2NS AT 50 ML/HR. WILL CARRY ORDER.
[2019-05-14] MEDS: DEXT 5% / NACL 0.45% 1,000 ML IV SCH (13:42)
--- NOTE | 2019-05-14 13:43 | NUR ---
HANG D51/2NS AT 50 ML/HR PER MD ORDER.
--- NOTE | 2019-05-14 13:55 | NUR ---
DAUGHTER IS FEEDING PATIENT FOOD.
--- NOTE | 2019-05-14 14:38 | NUR ---
FAMILY AT BEDSIDE. IV FLUIDS RUNNING. WILL CONTINUE TO MONITOR
--- NOTE | 2019-05-14 15:09 | NUR ---
05/14/19 RD INITIAL ASSESSMENT COMPLETED PLEASE REFER TO NUTRITION ASSESSMENT UNDER CARE ACTIVITY FOR ESTIMATED NUTRITIONAL NEEDS. 1. RECOMMEND RENAL DIET TOLERATED 2. FNS WILL PROVIDE NEPRO SHAKE TID 3. ENCOURAGED PATIENT TO INCREASE PO INTAKE, ESPECIALLY CARBOHYDRATES 4. RD TO FOLLOW-UP 2-3 DAYS, HIGH RISK SKYLER JOSEPH RD
[2019-05-14 16:00] VITALS: BP 110/73
--- NOTE | 2019-05-14 16:05 | NUR ---
CHANGED IV TO RIGHT FOREARM G20, FLUSHING WELL. RUNNING VANCO AT THIS TIME. PATIENT TOLERATED WELL.
--- NOTE | 2019-05-14 16:28 | NUR ---
VITAL SIGNS CHECK. BLOOD GLUCOSE 71. WILL CONTINUE TO MONITOR. WILL GIVE CRANBERRY JUICE. D51/2NS FLUID IS RUNNING
[2019-05-14] MEDS: GLUCOSE PO PRN (16:55)
--- NOTE | 2019-05-14 17:09 | NUR ---
GIVEN XANAX PO. PATIENT WAS EXTREMELY AGITATED. SHE WAS TRYING TO PULL IV AND GETTING OUT OF BED. BED IN LOW POSITION. CALL LIGHT IS WITHIN REACH. WILL CONTINUE TO MONITOR
--- NOTE | 2019-05-14 17:11 | NUR ---
BLOOD SUGAR CHECK. 81. WILL CONTINUE TO MONITOR
--- NOTE | 2019-05-14 18:10 | NUR ---
EXPLAINED TO PATIENT THAT IT'S TOO RISKY FOR HER TO BE SITTING IN THE CHAIR. PATIENT IS YELLING. NOTIFIED SISTER, DANYELLE.
--- NOTE | 2019-05-14 18:16 | NUR ---
BLOOD GLUCOSE CHECK: 86. TRENDING.
--- NOTE | 2019-05-14 18:42 | NUR ---
HELPED PATIENT EAT. PATIENT ONLY ATE RICE. GIVEN 2 SUGAR PACKS TO BRING BLOOD SUGAR BACK UP.
--- NOTE | 2019-05-14 18:56 | NUR ---
PATIENT IS CALM, QUIET, AT THIS TIME. BED IN LOW POSITION. CALL LIGHT IS WITHIN REACH. WILL CONTINUE TO MONITOR
--- NOTE | 2019-05-14 19:08 | NUR ---
DAUGHTER DORYS GAVE ME 2 BOTTLES OF METHADONE LIQUID. WILL PUT THEM IN THE NARCOTIC BOX. PM NURSE IS AWARE.
--- NOTE | 2019-05-14 19:15 | NUR ---
ENDORSED PATIENT TO THE WATER TREATMENT PLANT REPAIRER NURSE FOR CONTINUITY OF CARE. ASLEEP RESPIRATIONS EVEN AND UNLABORED. ROOM AIR. VISIBLE CHEST RISE. PATIENT IS IN STABLE CONDITION
--- NOTE | 2019-05-14 19:21 | NUR ---
RECEIVED PT IN STABLE CONDITION FROM AM NURSE. AWAKE,ALERT AND ORIENTED X4. BEDREST. MED SURG PT. WITH NO C/O ANY DISCOMFORT NOR PAIN NOTED. HAS IVF INFUSING WELL ON THE RT FA G#24. OLD AV SHUNT ON LT ARM, LT CHEST HD CATHETER. SACRAL WOUND WITH DRESSING. BED ON LOW POSITION. FREQ ROUNDS NEEDED. SIDE RAILS UP X2. CALL LIGHT PLACED WITHIN EASY REACH. WILL CONTINUE TO MONITOR.
--- NOTE | 2019-05-14 19:46 | NUR ---
FAMILY AT BEDSIDE. IV SITE SWOLLEN, DISCONTINUED. WILL START A NEW IV ACCESS.
--- NOTE | 2019-05-14 20:03 | NUR ---
VISITORS AT BEDSIDE. RECEIVED PATIENT ON 2L NASAL CANNULA, PULSE OX SAT 99%. SCHEDULED BREATHING TREATMENT ADMINISTERED. TOLERATED TX WELL WITHOUT ADVERSE SIDE EFFECTS. PT MADE AWARE OF MEDICATION FREQUENCY AND INSTRUCTED TO CALL NEEDED FOR SOB. NO ACUTE RESPIRATORY DISTRESS NOTED AT THIS TIME. WILL CONTINUE TO MONITOR.
--- NOTE | 2019-05-14 20:40 | NUR ---
BLOOD SUGAR WAS CHECKED RESULT 102 NO INSULIN . REFUSED TO EAT BUT GAVE SOME GLUCERNA. TOLERATED WELL. WILL CONTINUE TO MONITOR.
--- NOTE | 2019-05-14 22:30 | NUR ---
MADE ROUNDS. PT ASLEEP. NO S/S OF ANY DISCOMFORT NOR DISTRESS NOTED.
--- NOTE | 2019-05-15 00:03 | NUR ---
PT REPOSITIONED FOR COMFORT. HAD A SMALL LIQUID CAMELIA. CLEANED AND KEPT DRY.
[2019-05-15 00:15] VITALS: BP 111/64
--- NOTE | 2019-05-15 02:00 | NUR ---
SLEEPING. NO S/S OF ANY DISCOMFORT NOTED.
[2019-05-15] MEDS: IPRATROPIUM 0.02% 0.5 MG/2.5 ML NEBU INH SCH ×4 (02:03→19:32)
--- NOTE | 2019-05-15 02:11 | NUR ---
SCHEDULED BREATHING TREATMENT ADMINISTERED. TOLERATED TX WELL WITHOUT ADVERSE SIDE EFFECTS. NO ACUTE RESPIRATORY DISTRESS NOTED AT THIS TIME. WILL CONTINUE TO MONITOR.
--- NOTE | 2019-05-15 04:00 | NUR ---
REPOSITIONED FOR COMFORT. NO S/S OF DISTRESS NOTED.
[2019-05-15] MEDS: BLOOD GLUCOSE MONITORING 1 DEV DEV FS SCH ×4 (06:17→21:07)
--- NOTE | 2019-05-15 06:30 | NUR ---
BLOOD SUGAR 67. GIVEN SOME APPLE JUICE. TOLERATED WELL.
--- NOTE | 2019-05-15 07:15 | NUR ---
ENDORSED PT IN STABLE CONDITION TO AM NURSE FOR CONTINUITY OF CARE.
--- NOTE | 2019-05-15 07:20 | NUR ---
RECEIVED BEDSIDE REPORT FROM NIGHTSHIFT NURSE. PT RESTING IN BED UPON ARRIVAL. RESPIRATIONS EVEN AND UNLABORED WITH NO SOB OR RESPIRATORY DISTRESS. SKIN WARM AND DRY TO TOUCH. IV SITE IN RIGHT UPPER ARM 24G IS CLEAN, DRY, AND INTACT. SAFETY MEASURES IN PLACE. WILL CONTINUE TO MONITOR
[2019-05-15 08:00] VITALS: BP 128/65
[2019-05-15] MEDS: amLODIPine 5 MG TAB PO SCH ×4 (09:00→09:44)
[2019-05-15] MEDS: MINOXIDIL 10 MG TAB PO SCH (09:00)
[2019-05-15] MEDS: hydrALAZINE 25 MG TAB PO SCH ×3 (09:00→21:06)
[2019-05-15] MEDS: POLYETHYLENE GLYCOL 17 GM/PKT PO SCH (09:19)
[2019-05-15] MEDS: METHADONE PO SCH ×2 (09:19→21:08)
[2019-05-15] MEDS: LABETALOL 200 MG TAB PO SCH ×2 (09:22→09:44)
[2019-05-15] MEDS: PANTOPRAZOLE 40 MG TABEC PO SCH (09:23)
[2019-05-15] MEDS: BISACODYL 5 MG TABEC PO SCH (09:24)
[2019-05-15] MEDS: DOCUSATE 100 MG/10 ML UDC PO SCH (09:24)
[2019-05-15] MEDS: OSELTAMIVIR PHOSPHATE 75 MG CAP PO SCH ×3 (09:24→09:46)
[2019-05-15] MEDS: DEXT 5% / NACL 0.45% 1,000 ML IV SCH (09:37)
--- NOTE | 2019-05-15 09:37 | NUR ---
ADMINISTERED SCHED MED PRESCRIBED PER MD ORDER. PT TOLERATED WELL. MEDICATION EDUCATION PERFORMED. PT VERBALIZED UNDERSTANDING. SAFETY MEASURES IN PLACE. WILL CONTINUE TO MONITOR.
[2019-05-15] MEDS: HYDROcodone/APAP 5/325 MG 1 TAB TAB PO PRN (11:11)
--- NOTE | 2019-05-15 11:11 | NUR ---
PT COMPLAINED OF PAIN. PRN PAIN MEDICATION ADMINISTERED PRESCRIBED PER MD ORDER. MEDICATION EDUCATION PERFORMED. PT VERBALIZED UNDERSTANDING. SAFETY MEASURES IN PLACE. WILL CONTINUE TO MONITOR
[2019-05-15] MEDS: GLUCOSE PO PRN (11:19)
--- NOTE | 2019-05-15 11:30 | NUR ---
PT BLOOD SUGAR WAS 59. PRN GLUCOSE GUMMIES ADMINISTERED PRESCRIBED PER MD ORDER. SAFETY MEASURES IN PLACE. WILL CONTINUE TO MONITOR.
--- NOTE | 2019-05-15 13:15 | NUR ---
FAMILY AT BEDSIDE. PT RESTING IN BED UPON ARRIVAL. RESPIRATIONS EVEN AND UNLABORED WITH NO SOB OR RESPIRATORY DISTRESS. SKIN WARM AND DRY TO TOUCH. SAFETY MEASURES IN PLACE. WILL CONTINUE TO MONITOR
--- NOTE | 2019-05-15 15:45 | NUR ---
HOURLY ROUNDING. PT RESTING IN BED UPON ARRIVAL. RESPIRATIONS EVEN AND UNLABORED WITH NO SOB OR RESPIRATORY DISTRESS. SKIN WARM AND DRY TO TOUCH. SAFETY MEASURES IN PLACE. WILL CONTINUE TO MONITOR
[2019-05-15 16:00] VITALS: BP 129/65
--- NOTE | 2019-05-15 16:30 | NUR ---
PT BLOOD SUGAR IS 73. NO FURTHER ACTION IS NECESSARY. SAFETY MEASURES IN PLACE. WILL CONTINUE TO MONITOR.
--- NOTE | 2019-05-15 17:37 | NUR ---
HOURLY ROUNDING. PT RESTING IN BED UPON ARRIVAL. ABLE TO MAKE NEEDS KNOWN.RESPIRATIONS EVEN AND UNLABORED WITH NO SOB OR RESPIRATORY DISTRESS. SKIN WARM AND DRY TO TOUCH. SAFETY MEASURES IN PLACE. WILL CONTINUE TO MONITOR
--- NOTE | 2019-05-15 19:07 | NUR ---
ENDORSED AT BEDSIDE TO NIGHTSHIFT NURSE. PT RESTING IN BED UPON ARRIVAL. ABLE TO MAKE NEEDS KNOWN.RESPIRATIONS EVEN AND UNLABORED WITH NO SOB OR RESPIRATORY DISTRESS. SKIN WARM AND DRY TO TOUCH. SAFETY MEASURES IN PLACE. PT IS STABLE
--- NOTE | 2019-05-15 19:08 | NUR ---
RECD. RESTING IN BED, AWAKE, A/OX4. RESPIRATION EVEN AND UNLABORED. ON 2 LITERS O2 VIA N/C. 02 SAT - 100%. IV OF D51/2 NS AT 50 ML/HR INFUSING, RIGHT UPPER ARM G24. LEFT SUBCLAVIAN TUNNEL CATH FOR DIALYSIS WITH DRESSING DRY AND INTACT, WITH AV SHUNT AT THE LEFT ARM . PLAN OF CARE FOR THE NIGHT DISCUSSED. VERBALIZED UNDERSTANDING. DENIES PAIN 0/10. DAUGHTER AT THE BEDSIDE.
--- NOTE | 2019-05-15 19:30 | NUR ---
Patient's Plan of Care was discussed and reviewed with STRING TOP SEALER: KEYONNA
--- NOTE | 2019-05-15 19:38 | NUR ---
RECEIVED PT FROM AM SHIFT. PT IN NO APPARENT RESPIRATORY DISTRESS AT THIS TIME; HR 67, RR 18, SPO2 98% ON 2L NC AND A COARSE BREATH SOUNDS ON THE UPPER LOBES; COARSE BREATH SOUNDS ON LOWER LOBES. HHN TX GIVEN ORDERED WITH NO ADVERSE REACTION. PT INFORMED TO CALL RN OR SPEAKING UNIT ASSEMBLER FOR HHN PRN TX WHEN EXPERIENCING SOB. HOB > 30. FAMILY AT BEDSIDE. WILL CONTINUE TO MONITOR PT.
--- NOTE | 2019-05-15 20:00 | NUR ---
DR. DONATO CAME TO CHECKED PATIENT. ORDER US PELVIC NON 0B WITH DOPPLER (US).
--- NOTE | 2019-05-15 20:30 | NUR ---
MADE COMFORTABLE IN BED WITH PILLOWS. EXTRA PILLOW PUT BETWEEN BILATERAL LOWER EXTREMITIES FOR COMFORT.
--- NOTE | 2019-05-15 21:00 | NUR ---
DR. DURAN CAME AND CHECKED PATIENT. WILL FOLLOW UP WITH ANY NEW ORDER.
--- NOTE | 2019-05-15 21:08 | NUR ---
DUE PO MEDICATIONS GIVEN. SNACK FOR THE NIGHT GIVEN.
[2019-05-15] MEDS: oxyCODONE/APAP 5/325 MG 1 TAB TAB PO PRN (21:09)
[2019-05-15] MEDS: LEVOFLOXACIN 250 MG/D5 PREMIX 50 ML IV SCH (22:15)
--- NOTE | 2019-05-15 22:30 | NUR ---
SLEEPING COMFORTABLY IN BED.
[2019-05-16] VITALS: BP 141/75
[2019-05-16] MEDS: IPRATROPIUM 0.02% 0.5 MG/2.5 ML NEBU INH SCH ×4 (00:37→19:18)
[2019-05-16] MEDS: ALPRAZolam 0.5 MG TAB PO PRN (00:49)
--- NOTE | 2019-05-16 00:49 | NUR ---
WITH ANXIETY, UNABLE TO SLEEP. MEDICATED XANAX AND RESTORIL PER MD ORDER.
--- NOTE | 2019-05-16 02:00 | NUR ---
NO ANXIETY, SLEEPING COMFORTABLY IN BED.
--- NOTE | 2019-05-16 03:10 | NUR ---
IV INFILTRATED. PATIENT HARDSTICK. NEW IV LINE INSERTED IN THE CHEST G24 BY CHARGE NURSE YOUSIF.
[2019-05-16] MEDS: DEXT 5% / NACL 0.45% 1,000 ML IV SCH ×2 (04:41→05:35)
--- NOTE | 2019-05-16 05:30 | NUR ---
REFUSED AM LAB BLOOD DRAW.
--- NOTE | 2019-05-16 07:14 | NUR ---
ABLE TO SLEEP WELL. CONDITION REMAIN STABLE. ENDORSED TO AM SHIFT NURSE FOR CONTINUITY OF CARE.
--- NOTE | 2019-05-16 07:15 | NUR ---
[facility] PT IS SLEEPING NO SIGNS OF DISTRESS. PT HAS IV AT THE CHEST 24G WITH D5 1/2 NS RUNNING AT 50ML/HR. PT HAS O2 AT 2 LPM VIA NC. PT HAS LEFT TUNNEL CATH SUBCLAVIAN AND LEFT AV SHUNT. PT IS SCHEDULED FOR DIALYSIS TODAY. PT IS BEDBOUND. CALL LIGHT WITHIN PT'S REACH. BED ON LOW, SIDE RAILS UP. WILL CONTINUE TO MONITOR
[2019-05-16 08:00] VITALS: BP 135/71
[2019-05-16] MEDS: BLOOD GLUCOSE MONITORING 1 DEV DEV FS SCH ×4 (08:23→21:00)
[2019-05-16] MEDS: EPOETIN ALFA 10,000 UNITS/ML VIAL IV SCH (09:00)
[2019-05-16] MEDS: METHADONE PO SCH ×2 (09:00→23:01)
[2019-05-16] MEDS: hydrALAZINE 25 MG TAB PO SCH ×2 (09:00→18:51)
[2019-05-16] MEDS: MINOXIDIL 10 MG TAB PO SCH (09:00)
[2019-05-16] MEDS: LABETALOL 200 MG TAB PO SCH (09:00)
--- NOTE | 2019-05-16 09:05 | NUR ---
SCHEDULED MEDS GIVEN EXCEPT BP MEDS. PT IS FOR DIALYSIS TODAY. WILL CONTINUE TO MONITOR
[2019-05-16] MEDS: DOCUSATE 100 MG/10 ML UDC PO SCH (09:45)
[2019-05-16] MEDS: BISACODYL 5 MG TABEC PO SCH (09:46)
[2019-05-16] MEDS: PANTOPRAZOLE 40 MG TABEC PO SCH (09:47)
[2019-05-16] MEDS: POLYETHYLENE GLYCOL 17 GM/PKT PO SCH (09:48)
--- NOTE | 2019-05-16 12:22 | NUR ---
GLUCOSE CHECKED= 100. NO INSULIN COVERAGE NEEDED.
--- NOTE | 2019-05-16 12:50 | NUR ---
DIALYSIS NURSEMIGUEL ANGEL STARTED DIALYSIS ON THE PT. NO SIGNS OF DISTRESS ON THE PT.
--- NOTE | 2019-05-16 14:52 | NUR ---
05/16/19 RD FOLLOW UP COMPLETED PLEASE REFER TO NUTRITION ASSESSMENT UNDER CARE ACTIVITY FOR ESTIMATED NUTRITIONAL NEEDS. 1. RECOMMEND A MECH SOFT RENAL DIET 2. RECOMMEND GLUCERNA BID PER PATIENTS FAMILY REQUEST 3. PROVIDE FOODS WITH PATIENTS PREFERENCES 4. ENCOURAGE INCREASING PO INTAKE 5. RD TO FOLLOW-UP 2-3 DAYS, HIGH RISK SKYLER JOSEPH, RD
[2019-05-16 15:57] LABS: ANION GAP 8.8 (8-16); CARBON DIOXIDE 29.3 mmol/L (21-32); POTASSIUM 3.1 mmol/L (3.5-5.1)
[2019-05-16 16:00] VITALS: BP 143/77
[2019-05-16] MEDS: oxyCODONE/APAP 5/325 MG 1 TAB TAB PO PRN (16:36)
[2019-05-16 17:37] LABS: BASOPHILS % (AUTO) 0.3 % (0.0-2.0); EOSINOPHILS # (AUTO) 0.2 K/uL (0-0.4); EOSINOPHILS % (AUTO) 3.5 % (0.0-4.0); HEMATOCRIT 27.9 % (36-48); HEMOGLOBIN 9.3 g/dL (12.0-16.0); LYMPHOCYTES # (AUTO) 0.4 K/uL (2.5-16.5); MEAN CORPUSCULAR HEMOGLOBIN 28 pg (27-31); MEAN CORPUSCULAR HGB CONC 33 g/dL (33-37); MEAN CORPUSCULAR VOLUME 85.1 fL (80-94); MONOCYTES # (AUTO) 0.5 K/uL (0.8-1.0); MONOCYTES % (AUTO) 12.5 % (1.7-9.3); NEUTROPHILS # (AUTO) 3.2 K/uL (1.8-7.7); NEUTROPHILS % (AUTO) 73.7 % (42.2-75.2); PLATELET COUNT (AUTO) 156 K/uL (140-450); RED BLOOD CELL COUNT(AUTO) 3.28 MIL/uL (4.20-5.40); WHITE BLOOD COUNT (AUTO) 4.4 K/uL (4.8-10.8)
[2019-05-16] MEDS ORDERED: VANCOMYCIN 1,000 MG in DEXTROSE 5% 250 ML IV SCH (18:00)
--- NOTE | 2019-05-16 18:56 | NUR ---
BP CHECKED 157/75, P 88. HYDRALAZINE GIVEN. PT TOLERATED WELL.
--- NOTE | 2019-05-16 19:27 | NUR ---
RECIEVED PT AAOX4 , NID -O2 SAT WNL - ON O2 AT 2LM/NC - HW/ HX COPD . IV SITE ON THE CHEST INTACCT AND PATENT , W/ TO AV SHUNT , HAD HD TODAY HAD 3.5 OUT PUT , BP WNL AT THIS TIME , ALTHOUGHT PT'S SKIN INTACT BUT ON LOW MONA SCALE , BEDBOUND , POC DISCUSSED AND VERBALIZDE UNDERSTANDING - CALL LIGHT WITHIN REACH . ON SAFETY / FALL PRECAUTION PROTOCOL . WILL CONT. TO MONITOR.
--- NOTE | 2019-05-16 19:27 | NUR ---
REPORT GIVEN TO [facility] NURSE. PT IS STABLE. CALL LIGHT WITHIN PT'S REACH, BED ON LOW, SIDE RAILS UP.
[2019-05-16 19:46] LABS: ALBUMIN 2.1 g/dL (3.4-5.0); BILIRUBIN,DIRECT 0.3 mg/dL (0.0-0.3); TOTAL BILIRUBIN 0.6 mg/dL (0.0-1.0)
[2019-05-16 20:00] VITALS: BP 133/78
--- NOTE | 2019-05-16 22:00 | NUR ---
MADE ROUNDS , REQUESTING FOR ORANGE JUICE - PROVIDED W/ SAP , WILL CONT. TO MONITOR , NO S/ S OF ACUTE DISTRESS NOTED AT THIS TIME . WILL CONT. TO MONITOR.
--- NOTE | 2019-05-17 | NUR ---
MADEW ROUNDS NO S/ S OF ACUTE DISTRESS NOTED AT THIS TIME , WILL CONT. TO MONITOR - O2 SAT WNL .
[2019-05-17] MEDS: IPRATROPIUM 0.02% 0.5 MG/2.5 ML NEBU INH SCH ×4 (01:00→19:25)
--- NOTE | 2019-05-17 01:16 | NUR ---
PT REFUSED ATROVENT MEDICATION AND SAID SHE DOES NOT WANT IT AND WANTS IT IN THE MORNING INSTEAD. PT SATURATION WAS 98%. B/S WERE CLEAR. WILL CONT TO MONITOR
--- NOTE | 2019-05-17 02:00 | NUR ---
MADE ROUNDS , SLEEPING - CHEST RISE AND FALL EQUALLY - WILL CONT. TO MONITOR.
--- NOTE | 2019-05-17 04:00 | NUR ---
MADE ROUNDS , NO S/S OF ACUTE DISTRESS NOTED .
[2019-05-17] MEDS: BLOOD GLUCOSE MONITORING 1 DEV DEV FS SCH ×3 (07:05→14:29)
--- NOTE | 2019-05-17 07:30 | NUR ---
ENDORSED - PT -STABLE - LATEST HGT 75.
--- NOTE | 2019-05-17 07:31 | NUR ---
RECEIVED REPORT FROM DETAIL DRAFTER NURSE SAGAR FOR CONTINUITY OF CARE. PT IN STABLE CONDITION. RESPIRATIONS EVEN AND UNLABORED, ROOM AIR. IV INTACT AND PATENT. SAFETY MEASURES IN PLACE. BED IN LOW POSITION. CALL LIGHT AT BEDSIDE. WILL CONTINUE TO MONITOR.
[2019-05-17 08:00] VITALS: BP 159/80
[2019-05-17] MEDS: DOCUSATE 100 MG/10 ML UDC PO SCH (08:49)
[2019-05-17] MEDS: amLODIPine 5 MG TAB PO SCH (08:50)
[2019-05-17] MEDS: LABETALOL 200 MG TAB PO SCH (08:50)
[2019-05-17] MEDS: PANTOPRAZOLE 40 MG TABEC PO SCH (08:51)
[2019-05-17] MEDS: hydrALAZINE 25 MG TAB PO SCH (08:51)
[2019-05-17] MEDS: BISACODYL 5 MG TABEC PO SCH (08:51)
[2019-05-17] MEDS: POLYETHYLENE GLYCOL 17 GM/PKT PO SCH (08:52)
[2019-05-17] MEDS: OSELTAMIVIR PHOSPHATE 75 MG CAP PO SCH (08:52)
[2019-05-17] MEDS: EPOETIN ALFA 10,000 UNITS/ML VIAL IV SCH (08:52)
[2019-05-17] MEDS: MINOXIDIL 10 MG TAB PO SCH (08:55)
--- NOTE | 2019-05-17 10:44 | NUR ---
PT AT BEDSIDE. PT IN STABLE CONDITION. Addendum: 05/17/19 at 2015 by Tiffani Rubio RN PHYSICAL THERAPY
[2019-05-17] MEDS: METHADONE PO SCH (10:51)
--- NOTE | 2019-05-17 12:01 | NUR ---
CLEANED AFTER BOWEL MOVEMENT PT IN STABLE CONDITION. RESPIRATIONS EVEN AND UNLABORED. BED IN LOW POSITION. CALL LIGHT AT BEDSIDE. WILL CONTINUE TO MONITOR.
--- NOTE | 2019-05-17 14:30 | NUR ---
PT SISTER MELLISA CALLED FOR UPDATE. PT GAVE CONSENT TO UPDATE. ALL QUESTIONS ANSWERED AT THIS TIME.
--- NOTE | 2019-05-17 14:33 | NUR ---
PT AND PT SPOUSE REQUESTED BLOOD SUGAR CHECK AT THIS TIME. BS 71. RESPIRATIONS EVEN AND UNLABORED. BED IN LOW POSITION. CALL LIGHT AT BEDSIDE. WILL CONTINUE TO MONITOR.
[2019-05-17 16:00] VITALS: BP 127/70
--- NOTE | 2019-05-17 17:30 | NUR ---
PICKED UP PT MEDICATION FROM PHARMACY ([facility]) AND PT BIN (GUMMIES). GAVE MEDICATIONS TO PT DAUGHTER DORYS TO TAKE HOME.
--- NOTE | 2019-05-17 17:45 | NUR ---
CONTACTED [facility], STATED THEY ARE NOT CONTACTED WITH PT'S INSURANCE. CONTACTED [facility], SPOKE WITH [facility], STATED THAT THIS IS THEIR PT AND TO CALL [facility] TO SET UP THE TRANSPORTATION (TEL#: [phone]) SPOKE WITH [facility]OB[facility], STATED [facility] WILL CALL FOR ETA. ALOK ASSIGNED MADE AWARE. Addendum: 05/17/19 at 1755 by Sis Fleming RN [facility] REF #: [id number]
--- NOTE | 2019-05-17 18:15 | NUR ---
CALLED PT DAUGHTER DORYS ABOUT TRANSPORT SHEARING SHED HAND AT 1930. DORYS VERBALIZED UNDERSTANDING OF INFORMATION.
--- NOTE | 2019-05-17 18:54 | NUR ---
CONTACTED [facility], SPOKE WITH DANIEL PEREZ FOR VOLLEYBALL ASSEMBLER WILL BE AT 1930 HRS RENE LA-SHAHIDA ASSIGNED MADE AWARE.
--- NOTE | 2019-05-17 19:10 | NUR ---
RECIEVED PT. AAOX4 , NID - O2 SAT WNL , IV SITE INTACT AND PATENT , W/ IV SHUNT ON TO - INTACT , FOR DISCHARGE TODAY . PER RENE ALL DISCHARGE PAPERS ALREADY SIGNED AND GIVEN TO RELATIVE - ALL I HAVE TO DO IS REMOVE THE IV CANNULLA . LATEST HGT 71 - WILL GIVE VANILLA PUDDING , ORANGE JIUCE WHILE WAITING THE HOISTING LABORER .
--- NOTE | 2019-05-17 19:10 | NUR ---
GAVE REPORT TO SAGAR FOR CONTINUITY OF CARE. PT IN STABLE CONDITION.
--- NOTE | 2019-05-17 19:30 | NUR ---
ATE VANILLA PUDDDING AND DRUNK 1 GLASS OF ORANGE JIUCE . REMOVE IV CANULLA - PROCEDURE TOLERATED WELL - NO ACTIVE BLEEDING - IV NEEDLE INTACT . REMINDS THE PROTOTYPE DEICER ASSEMBLER STAFF TO KEEP ON EYE THE IV SITE FOR BLEEDING .
--- NOTE | 2019-05-17 20:05 | NUR ---
DISCHARGE / COCOA MILLING MACHINE OPERATOR BY COCOA MILLING MACHINE OPERATOR STAFF / MALIK Wallace PT IS ON STABLE CONDITION.
== END 2019-05-17 20:05 | disposition home health service (06) | DRG 133 ==
LOC: MED 20:15 → MTU 05-11 02:19
PROVIDERS: ADMIT Preventive Medicine Preventive Medicine/Occupational Environmental Medicine; ATTEND Preventive Medicine Preventive Medicine/Occupational Environmental Medicine
PROC: 5A1D70Z Performance of Urinary Filtration, Intermittent, Less than 6 Hours Per Day (ICD-10-PCS; principal; 2019-05-11)
PROC: 5A1D70Z Performance of Urinary Filtration, Intermittent, Less than 6 Hours Per Day (ICD-10-PCS; 2019-05-14)
PROC: 5A1D70Z Performance of Urinary Filtration, Intermittent, Less than 6 Hours Per Day (ICD-10-PCS; 2019-05-16)
DX: J96.00 Acute respiratory failure, unspecified whether with hypoxia or hypercapnia (principal); J10.08 Influenza due to other identified influenza virus with other specified pneumonia; I13.2 Hypertensive heart and chronic kidney disease with heart failure and with stage 5 chronic kidney disease, or end stage renal disease; J18.9 Pneumonia, unspecified organism; D61.818 Other pancytopenia; E11.22 Type 2 diabetes mellitus with diabetic chronic kidney disease; N18.6 End stage renal disease; E11.649 Type 2 diabetes mellitus with hypoglycemia without coma; Z99.2 Dependence on renal dialysis; E87.1 Hypo-osmolality and hyponatremia; I50.9 Heart failure, unspecified; K59.00 Constipation, unspecified; M54.10 Radiculopathy, site unspecified; D63.1 Anemia in chronic kidney disease; E83.51 Hypocalcemia; E88.09 Other disorders of plasma-protein metabolism, not elsewhere classified; K21.9 Gastro-esophageal reflux disease without esophagitis; G89.29 Other chronic pain; R74.0 Nonspecific elevation of levels of transaminase and lactic acid dehydrogenase [LDH]; R53.81 Other malaise; Z85.42 Personal history of malignant neoplasm of other parts of uterus; Z88.0 Allergy status to penicillin; Z90.710 Acquired absence of both cervix and uterus
CPT/HCPCS: 36415; 71045; 74018; 76856; 80048; 80053; 80076; 80202; 82948; 83605; 83690; 83735; 84100; 84484; 85025; 85610; 85651; 86140; 87040; 87081; 87804; 90935; 94640; 96372; 96374; 99285; J0885; J1956; J2270; J2405; J3370; J7030; J7060; J7613; J7644; Q0092; Q0162